=== PATIENT | female | born 1995 | race Caucasian/White ===

== ENCOUNTER 2019-09-11 03:47 | Emergency (ER) | payer BC ==
--- NOTE | 2019-09-11 04:39 | EDM.PDOC ---
ED HPI GENERAL MEDICAL PROBLEM - General Chief Complaint: Abdominal Pain Stated Complaint: ABDOMINAL PAIN Time Seen by Provider: 09/11/19 04:34 Source of Information: Reports: Patient History Limitations: Reports: No Limitations - History of Present Illness INITIAL COMMENTS - FREE TEXT/NARRATIVE: 24-year-old female with epigastric abdominal pain which has come and gone since Friday last week. She had the pain on Friday in her epigastrium that was sharp and stabbing and it lasted for a period of time and seemed to go away on its own. She had it again yesterday during the day and once again it seemed to go away on its own. It began at about 6:30 PM tonight and has been fairly constant since that time. The pain does not radiate. It is sharp and stabbing. She rates the pain as an 8/10. There has been nausea associated with it and vomiting 5. She has had pain similar to this in the past but it was short-lived and required no medical intervention. No fevers or chills. No urinary symptoms. The pain is worse with palpation. It seems to be somewhat worse when she tries to eat or drink. Nothing really seemed to bring the symptoms on. She did have a normal bowel movement at 1:30 PM yesterday. No dysuria or hematuria. There are no other associated signs or symptoms. There are no other modifying factors. 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 Medication(s) (Baclofen and gabapentin without relief) L abdomen Pain Score (Numeric/FACES): 8 - Related Data Allergies Allergy/AdvReac Type Severity Reaction Status Date / Time acetaminophen [From Tylenol] Allergy Hives Verified 09/11/19 03:56 ibuprofen Allergy Hives Verified 09/11/19 03:56 Penicillins Allergy Hives Verified 09/11/19 03:56 Home Meds: Home Meds Amitriptyline [Elavil] 25 mg PO BEDTIME 09/11/19 [History] Baclofen 20 mg PO TID PRN 09/11/19 [History] Ethinyl Estradiol/Drospirenone [Ni 28 Tablet] 1 each PO BEDTIME 09/11/19 [ History] Gabapentin [Neurontin] 100 mg PO TID PRN 09/11/19 [History] Melatonin 5 mg PO BEDTIME 09/11/19 [History] Omeprazole 40 mg PO ACBREAKFAST #30 cap.sr 09/11/19 [Rx] Ondansetron [Zofran ODT] 4 mg PO Q6H PRN #10 tab.dis 09/11/19 [Rx] Past Medical History 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: Asthma 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 Musculoskeletal History: Reports: Fibromyalgia, RA Neurological History: Reports: Migraines Psychiatric History: Reports: Anxiety, Depression, Suicide Attempt Endocrine/Metabolic History: Reports: Obesity/BMI 30+ Hematologic History: Reports: Anemia - Past Surgical History HEENT Surgical History: Reports: Adenoidectomy, Oral Surgery ([place] teeth extraction), Tonsillectomy Neurological Surgical History: Reports: None Musculoskeletal Surgical History: Reports: None Social & Family History - Tobacco Use Smoking Status *Q: Never Smoker - Caffeine Use Caffeine Use: Reports: Coffee, Soda, Tea - Alcohol Use Alcohol Use History: No - Recreational Drug Use Recreational Drug Use: No - Living Situation & Occupation Living situation: Reports: Single 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.) ED ROS GENERAL - Review of Systems Review Of Systems: See Below Constitutional: Reports: No Symptoms HEENT: Reports: No Symptoms Respiratory: Reports: No Symptoms Cardiovascular: Reports: No Symptoms Endocrine: Reports: No Symptoms GI/Abdominal: Reports: Abdominal Pain, Nausea, Vomiting : Reports: No Symptoms Musculoskeletal: Reports: No Symptoms Skin: Reports: No Symptoms Neurological: Reports: No Symptoms Hematologic/Lymphatic: Reports: No Symptoms Immunologic: Reports: No Symptoms ED EXAM, GI/ABD - Physical Exam Exam: See Below Exam Limited By: No Limitations General Appearance: Alert, WD/WN, Moderate Distress Eyes: Bilateral: Normal Appearance, EOMI Ears: Normal External Exam, Hearing Grossly Normal Nose: Normal Inspection, Normal Mucosa, No Blood Throat/Mouth: Normal Voice, No Airway Compromise, Other (Somewhat dry mucous membranes) Head: Atraumatic, Normocephalic Neck: Normal Inspection, Supple, Non-Tender, Full Range of Motion Respiratory/Chest: No Respiratory Distress, Lungs Clear, Normal Breath Sounds, No Accessory Muscle Use, Chest Non-Tender Cardiovascular: Normal Peripheral Pulses, Regular Rate, Rhythm, No JVD, No Murmur GI/Abdominal Exam: Normal Bowel Sounds, Soft, No Mass, Tender (In epigastrium.) , Other (Protuberant) Back Exam: Normal Inspection, Full Range of Motion Extremities: Normal Inspection, Normal Range of Motion, Non-Tender, No Pedal Edema, Normal Capillary Refill Neurological: Alert, Oriented, CN II-XII Intact, Normal Cognition, No Motor/ Sensory Deficits Skin Exam: Warm, Dry, Intact, Normal Color, No Rash Course - Vital Signs Last Recorded V/S: Last Vital Signs Temp 36.3 C 09/11/19 03:51 Pulse 80 09/11/19 03:51 Resp 18 09/11/19 03:51 BP 145/103 H 09/11/19 03:51 Pulse Ox 100 09/11/19 03:51 - Orders/Labs/Meds Labs: Laboratory Tests 09/11/19 09/11/19 09/11/19 Range/Units 04:08 04:08 04:20 WBC 11.0 (4.5-12.0) X10-3/uL RBC 4.76 (3.23-5.20) x10(6)uL Hgb 13.6 (11.5-15.5) g/dL Hct 40.4 (30.0-51.3) % MCV 84.9 (80-96) fL MCH 28.6 (27.7-33.6) pg MCHC 33.7 (32.2-35.4) g/dL RDW 11.9 (11.5-15.5) % Plt Count 283 (125-369) X10(3)uL MPV 9.3 (7.4-10.4) fL Neut % (Auto) 74.7 (46-82) % Lymph % (Auto) 17.6 (13-37) % [place] % (Auto) 5.2 (4-12) % Eos % (Auto) 2 (1.0-5.0) % Baso % (Auto) 0 (0-2) % Neut # (Auto) 8.3 (1.6-8.3) # Lymph # (Auto) 1.9 (0.6-5.0) # [place] # (Auto) 0.6 (0.0-1.3) # Eos # (Auto) 0.2 (0.0-0.8) # Baso # (Auto) 0.0 (0.0-0.2) # Sodium (135-145) mmol/L Potassium (3.5-5.3) mmol/L Chloride (100-110) mmol/L Carbon Dioxide (21-32) mmol/L BUN (7-18) mg/dL Creatinine (0.55-1.02) mg/dL Est Cr Clr Drug Dosing mL/min Estimated GFR (MDRD) (>60) BUN/Creatinine Ratio (9-20) Glucose (80-116) mg/dL Calcium (8.6-10.2) mg/dL Total Bilirubin (0.1-1.3) mg/dL AST (5-25) IU/L ALT (12-36) U/L Alkaline Phosphatase (56-112) IU/L C-Reactive Protein (0.5-0.9) mg/dL Total Protein (6.0-8.0) g/dL Albumin (3.5-5.2) g/dL Globulin g/dL Albumin/Globulin Ratio Lipase (73-393) U/L Urine Color Yellow (YELLOW) Urine Appearance Cloudy (CLEAR) Urine pH 5.0 (5.0-6.5) Ur Specific [place] 1.030 H (1.010-1.025) Urine Protein Trace (NEGATIVE) mg/dL Urine Glucose (UA) Normal (NORMAL) mg/dL Urine Ketones 15 H (NEGATIVE) mg/dL Urine Occult Blood Trace (NEGATIVE) Urine Nitrite Negative (NEGATIVE) Urine Bilirubin Small H (NEGATIVE) Urine Urobilinogen Normal (NEGATIVE) mg/dL Ur Leukocyte Esterase Small H (NEGATIVE) Urine RBC 0-5 (0-5) Urine WBC 0-5 (0-5) Ur Squamous Epith Cells Few H (NS,R,O) Amorphous Sediment Many Urine Bacteria Few H (NS) Urine HCG, Qual Negative (NEGATIVE) 09/11/19 09/11/19 Range/Units 04:20 04:20 WBC (4.5-12.0) X10-3/uL RBC (3.23-5.20) x10(6)uL Hgb (11.5-15.5) g/dL Hct (30.0-51.3) % MCV (80-96) fL MCH (27.7-33.6) pg MCHC (32.2-35.4) g/dL RDW (11.5-15.5) % Plt Count (125-369) X10(3)uL MPV (7.4-10.4) fL Neut % (Auto) (46-82) % Lymph % (Auto) (13-37) % [place] % (Auto) (4-12) % Eos % (Auto) (1.0-5.0) % Baso % (Auto) (0-2) % Neut # (Auto) (1.6-8.3) # Lymph # (Auto) (0.6-5.0) # [place] # (Auto) (0.0-1.3) # Eos # (Auto) (0.0-0.8) # Baso # (Auto) (0.0-0.2) # Sodium 140 (135-145) mmol/L Potassium 3.9 (3.5-5.3) mmol/L Chloride 104 (100-110) mmol/L Carbon Dioxide 25 (21-32) mmol/L BUN 13 (7-18) mg/dL Creatinine 0.8 (0.55-1.02) mg/dL Est Cr Clr Drug Dosing 84.28 mL/min Estimated GFR (MDRD) > 60 (>60) BUN/Creatinine Ratio 16.3 (9-20) Glucose 137 H (80-116) mg/dL Calcium 9.3 (8.6-10.2) mg/dL Total Bilirubin 0.2 (0.1-1.3) mg/dL AST 17 (5-25) IU/L ALT 38 H (12-36) U/L Alkaline Phosphatase 90 (56-112) IU/L C-Reactive Protein 1.2 H (0.5-0.9) mg/dL Total Protein 8.0 (6.0-8.0) g/dL Albumin 3.6 (3.5-5.2) g/dL Globulin 4.4 g/dL Albumin/Globulin Ratio 0.8 Lipase 84 (73-393) U/L Urine Color (YELLOW) Urine Appearance (CLEAR) Urine pH (5.0-6.5) Ur Specific [place] (1.010-1.025) Urine Protein (NEGATIVE) mg/dL Urine Glucose (UA) (NORMAL) mg/dL Urine Ketones (NEGATIVE) mg/dL Urine Occult Blood (NEGATIVE) Urine Nitrite (NEGATIVE) Urine Bilirubin (NEGATIVE) Urine Urobilinogen (NEGATIVE) mg/dL Ur Leukocyte Esterase (NEGATIVE) Urine RBC (0-5) Urine WBC (0-5) Ur Squamous Epith Cells (NS,R,O) Amorphous Sediment Urine Bacteria (NS) Urine HCG, Qual (NEGATIVE) Meds: Medications Discontinued Medications Generic Name Dose Route Start Last Admin Trade Name Freq PRN Reason Stop Dose Admin Sodium Chloride 1,000 mls @ 999 mls/hr 09/11/19 04:49 09/11/19 05:19 Normal Saline IV 09/11/19 05:49 999 mls/hr .BOLUS ONE Administration Metoclopramide HCl 10 mg 09/11/19 04:49 09/11/19 05:20 Reglan IVPUSH 09/11/19 04:50 10 mg ONETIME ONE Administration Pantoprazole Sodium 40 mg 09/11/19 05:53 Protonix Iv IVPUSH 09/11/19 05:54 ONETIME ONE - Re-Assessments/Exams Free Text/Narrative Re-Assessment/Exam: 09/11/19 05:50: Patient is sleeping. When awakened she reports she feels improved with the pain down to a 4/10. It does seem to be going away. No more nausea. No vomiting while here. Her blood tests and urine tests are all reassuringly normal. I am unsure of the cause her pain but suspect gastric or esophageal related. It also being a gallbladder problem. I will place the patient on Prilosec as a trial and have recommended that she follow up with her primary doctor she may need further testing as an outpatient. I will discharge the patient with a prescription for Zofran 4 mg ODT as well. I discussed this with the patient and she is comfortable with plans for discharge. Departure - Departure Time of Disposition: 06:00 Disposition: Home, Self-Care 01 Condition: Good (Improved) Clinical Impression: Dehydration Abdominal pain Qualifiers: Abdominal location: epigastric Qualified Code(s): R10.13 - Epigastric pain Vomiting Qualifiers: Vomiting type: unspecified Vomiting Intractability: non-intractable Nausea presence: with nausea Qualified Code(s): R11.2 - Nausea with vomiting, unspecified - Discharge Information Prescriptions: Omeprazole 40 mg PO ACBREAKFAST #30 cap.sr Ondansetron [Zofran ODT] 4 mg PO Q6H PRN #10 tab.dis PRN Reason: Nausea/Vomiting Instructions: Dehydration, Adult, [id number], Nausea and Vomiting, Adult, [id number], Abdominal Pain, Adult, [id number] Referrals: Nicolasa Alonzo NP [Nurse Practitioner] - Forms: ED Department Discharge Additional Instructions: Your blood tests and urine tests were reassuringly normal. As we discussed, I am unsure why you are having the episodes of epigastric abdominal pain. It could well be either a stomach or esophagus-related inflammation. It could also be a problem with your gallbladder. I am placing you on a trial of acid railroad police officer called Prilosec to treat for the possibility of stomach or esophagus-related problem. I have also given you a prescription of Zofran for nausea. I have referred you to Nicolasa Alonzo NP for follow-up of this as she may need further outpatient testing. If you have a primary doctor, you may follow-up with them as well. Back to the emergency department for unrelenting vomiting, high fever, worsening abdominal pain or any other concerning sign or symptom.
[2019-09-11] MEDS ORDERED: Sodium Chloride 0.9% 1,000 ML IV ONE (04:49)
[2019-09-11] MEDS ORDERED: Metoclopramide 10 MG/2 ML SDV IVPUSH ONE (04:49)
[2019-09-11] MEDS ORDERED: Pantoprazole 40 MG Vial IVPUSH ONE (05:53)
== END 2019-09-11 06:25 | disposition home or self-care (01) ==
LOC: FB.ED 03:47
DX: E86.0 Dehydration (principal); R10.13 Epigastric pain; R11.2 Nausea with vomiting, unspecified; J45.909 Unspecified asthma, uncomplicated; E66.9 Obesity, unspecified; F32.9 Major depressive disorder, single episode, unspecified; F41.9 Anxiety disorder, unspecified; Z88.6 Allergy status to analgesic agent; Z88.0 Allergy status to penicillin; Z88.8 Allergy status to other drugs, medicaments and biological substances; Z68.41 Body mass index [BMI] 40.0-44.9, adult
CPT/HCPCS: 36415; 80053; 81001; 81025; 83690; 85025; 86140; 96374; 96375; 99284; C9113; J2765; J7030

== ENCOUNTER 2020-11-09 03:47 | Emergency (ER) | payer BC ==
[2020-11-09] MEDS ORDERED: Prochlorperazine 5 MG Tab PO ONE (03:48)
[2020-11-09] MEDS: Sodium Chloride 0.9% 1,000 ML IV ONE (04:23)
[2020-11-09] MEDS: Ondansetron 4 MG/2 ML SDV IVPUSH ONE (04:23)
--- NOTE | 2020-11-09 05:31 | EDM.PDOC ---
ED HPI GENERAL MEDICAL PROBLEM - General Chief Complaint: General Stated Complaint: COVID Time Seen by Provider: 11/09/20 05:30 Source of Information: Reports: Patient History Limitations: Reports: No Limitations - History of Present Illness INITIAL COMMENTS - FREE TEXT/NARRATIVE: Margarita complains Nausea ,vomiting and dizziness.Also has body aches. Her symptoms have been on going since Friday.She has been diagnosed with COVID- 19.Denies any fever or chills,and no SOB Generalized Pain Score (Numeric/FACES): 9 - Related Data Allergies Allergy/AdvReac Type Severity Reaction Status Date / Time acetaminophen [From Tylenol] Allergy Hives Verified 09/11/19 03:56 ibuprofen Allergy Hives Verified 09/11/19 03:56 Penicillins Allergy Hives Verified 09/11/19 03:56 Home Meds: Home Meds Amitriptyline [Elavil] 25 mg PO BEDTIME 09/11/19 [History] Baclofen 20 mg PO TID PRN 09/11/19 [History] Ethinyl Estradiol/Drospirenone [Ni 28 Tablet] 1 each PO BEDTIME 09/11/19 [History] Gabapentin [Neurontin] 100 mg PO TID PRN 09/11/19 [History] Melatonin 5 mg PO BEDTIME 09/11/19 [History] Omeprazole 40 mg PO ACBREAKFAST #30 cap.sr 09/11/19 [Rx] Ondansetron [Zofran ODT] 4 mg PO Q6H PRN #10 tab.dis 09/11/19 [Rx] Hydroxychloroquine [Plaquenil] 200 mg PO DAILY 11/09/20 [History] Past Medical History 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: Asthma 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 Musculoskeletal History: Reports: Fibromyalgia, RA Neurological History: Reports: Migraines Psychiatric History: Reports: Anxiety, Depression, Suicide Attempt Endocrine/Metabolic History: Reports: Obesity/BMI 30+ Hematologic History: Reports: Anemia - Past Surgical History HEENT Surgical History: Reports: Adenoidectomy, Oral Surgery, Tonsillectomy Neurological Surgical History: Reports: None Musculoskeletal Surgical History: Reports: None Social & Family History - Family History Family Medical History: No Pertinent Family History - Tobacco Use Tobacco Use Status *Q: Never Tobacco User - Caffeine Use Caffeine Use: Reports: Soda - Recreational Drug Use Recreational Drug Use: No - Living Situation & Occupation Living situation: Reports: Single 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 ED EXAM, GENERAL - Physical Exam Exam: See Below Exam Limited By: No Limitations General Appearance: Alert, WD/WN, No Apparent Distress Ears: Normal External Exam Nose: Normal Inspection Respiratory/Chest: No Respiratory Distress Neurological: Alert, Oriented Psychiatric: Normal Affect Course - Vital Signs Last Recorded V/S: Last Vital Signs Temp 98.3 F 11/09/20 03:57 Pulse 119 H 11/09/20 03:57 Resp 18 11/09/20 03:57 BP 103/65 11/09/20 03:57 Pulse Ox 99 11/09/20 03:57 - Orders/Labs/Meds Labs: Laboratory Tests 11/09/20 11/09/20 Range/Units 04:15 04:15 WBC 7.9 (3.0-10.3) x10-3/uL RBC 4.75 (3.60-5.20) x10(6)uL Hgb 13.1 (11.4-15.5) g/dL Hct 40.0 (34.2-48.2) % MCV 84.3 (76.7-100.5) fL MCH 27.5 (23.9-33.9) pg MCHC 32.6 (31.9-34.8) g/dL RDW 12.8 (12.3-16.5) % Plt Count 205 (151-488) x10(3)uL MPV 9.8 (7.1-12.4) fL Neutrophils % (Manual) 69 (46-82) % Band Neutrophils % 2 (0-6) % Lymphocytes % (Manual) 23 (13-37) % Monocytes % (Manual) 6 (4-12) % Sodium 139 (135-145) mmol/L Potassium 4.1 (3.5-5.3) mmol/L Chloride 102 (100-110) mmol/L Carbon Dioxide 25 (21-32) mmol/L BUN 11 (7-18) mg/dL Creatinine 1.1 H (0.55-1.02) mg/dL Est Cr Clr Drug Dosing TNP Estimated GFR (MDRD) 60 (>60) BUN/Creatinine Ratio 10.0 (9-20) Glucose 166 H (80-116) mg/dL Calcium 8.9 (8.6-10.2) mg/dL Total Bilirubin 0.2 (0.1-1.3) mg/dL AST 27 H D (5-25) IU/L ALT 39 H (12-36) U/L Alkaline Phosphatase 69 (56-112) IU/L Total Protein 7.2 (6.0-8.0) g/dL Albumin 3.4 L (3.5-5.2) g/dL Globulin 3.8 g/dL Albumin/Globulin Ratio 0.9 Meds: Medications Discontinued Medications Generic Name Dose Route Start Last Admin Trade Name Freq PRN Reason Stop Dose Admin Sodium Chloride 1,000 mls @ 999 mls/hr 11/09/20 04:06 11/09/20 04:23 Normal Saline IV 11/09/20 05:06 999 mls/hr .BOLUS ONE Administration Ondansetron HCl 4 mg 11/09/20 04:06 11/09/20 04:23 Zofran IVPUSH 11/09/20 04:07 4 mg ONETIME ONE Administration Departure - Departure Time of Disposition: 05:31 Disposition: Home, Self-Care 01 Condition: Good Clinical Impression: Vomiting Qualifiers: Vomiting type: unspecified Vomiting Intractability: non-intractable Nausea presence: with nausea Qualified Code(s): R11.2 - Nausea with vomiting, unspecified - Discharge Information Instructions: COVID-19 Referrals: PCP,None [Primary Care Provider] - Forms: ED Department Discharge Additional Instructions: make sure to drink plenty of fluids every day. at least 3 liters per day. make take compazine 5mg 1 tab three times a day as needed for nausea. Sepsis Event Note (ED) - Evaluation Sepsis Screening Result: No Definite Risk - Focused Exam Vital Signs: Vital Signs Temp Pulse Resp BP Pulse Ox 11/09/20 03:57 98.3 F 119 H 18 103/65 99 - Problem List & Annotations (1) COVID-19 SNOMED Code(s): 911189794 Code(s): U07.1 - COVID-19 Status: Acute Current Visit: Yes (2) Vomiting SNOMED Code(s): 374478015 Code(s): R11.10 - VOMITING, UNSPECIFIED Status: Acute Current Visit: Yes Qualifiers: Vomiting type: unspecified Vomiting Intractability: non-intractable Nausea presence: with nausea Qualified Code(s): R11.2 - Nausea with vomiting, unspecified - Problem List Review Problem List Initiated/Reviewed/Updated: Yes - Assessment/Plan Plan: I gave Margarita 1 L of crystalloid,and IV Zofran. She felt better and DC's on Compazine to use prn for dizziness
== END 2020-11-09 06:30 | disposition home or self-care (01) ==
LOC: FB.ED 03:47
DX: R11.2 Nausea with vomiting, unspecified (principal); J45.909 Unspecified asthma, uncomplicated; F32.9 Major depressive disorder, single episode, unspecified; E66.9 Obesity, unspecified; Z88.6 Allergy status to analgesic agent; Z88.0 Allergy status to penicillin; Z79.899 Other long term (current) drug therapy
CPT/HCPCS: 36415; 80053; 85025; 96374; 99284; A9270; J2405; J7030; Q0164

== ENCOUNTER 2021-04-23 04:42 | Emergency (ER) | payer BC ==
[2021-04-23] MEDS ORDERED: Sodium Chloride 0.9% 10 ML Syringe FLUSH PRN (05:14)
[2021-04-23] MEDS ORDERED: Sodium Chloride 0.9% 1,000 ML IV ONE (05:15)
[2021-04-23] MEDS ORDERED: Prochlorperazine 10 MG/2 ML SDV IVPUSH ONE (05:16)
[2021-04-23] MEDS ORDERED: Pantoprazole 40 MG Vial IVPUSH ONE (05:17)
--- NOTE | 2021-04-23 05:27 | EDM.PDOC ---
ED HPI GENERAL MEDICAL PROBLEM - General Chief Complaint: Abdominal Pain Stated Complaint: STOMACH PAIN Time Seen by Provider: 04/23/21 05:23 Source of Information: Reports: Patient History Limitations: Reports: No Limitations - History of Present Illness INITIAL COMMENTS - FREE TEXT/NARRATIVE: Presents with non-radiating LUQ abdominal pain and N/V since @2300 last night. Denies EtOH consumption. Had similar symptoms on the right in the past ?etiology. PMHx includes Asthma, Migraine, Lupus, and RA. No prior h/o kidney stones or PUD. Patient had been on Omeprazole several years ago for "increased stomach acid." Onset Date: 04/22/21 Onset Time: 23:00 Location: Reports: Abdomen Quality: Reports: Ache Severity: Moderate L upper abdomen Pain Score (Numeric/FACES): 7 - Related Data Allergies Allergy/AdvReac Type Severity Reaction Status Date / Time acetaminophen [From Tylenol] Allergy Hives Verified 04/23/21 04:50 ibuprofen Allergy Hives Verified 04/23/21 04:50 Penicillins Allergy Hives Verified 04/23/21 04:50 Home Meds: Home Meds Amitriptyline [Elavil] 100 mg PO BEDTIME 09/11/19 [History] Baclofen 20 mg PO DAILY 09/11/19 [History] Ethinyl Estradiol/Drospirenone [Ni 28 Tablet] 1 each PO BEDTIME 09/11/19 [History] Gabapentin [Neurontin] 100 mg PO BID PRN 09/11/19 [History] Hydroxychloroquine [Plaquenil] 200 mg PO DAILY 11/09/20 [History] Albuterol Sulfate [Albuterol Sulfate Hfa] 2 puff IH Q4H PRN 04/23/21 [History] Pantoprazole Sodium [Protonix] 40 mg PO DAILY #14 tablet. 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 Musculoskeletal History: Reports: Fibromyalgia, RA, Other (See Below) Other Musculoskeletal History: hx lupus Neurological History: Reports: Migraines Psychiatric History: Reports: Anxiety, Depression, Suicide Attempt Endocrine/Metabolic History: Reports: Obesity/BMI 30+ Hematologic History: Reports: Anemia - Infectious Disease History Infectious Disease History: Reports: Novel Coronavirus - Past Surgical History HEENT Surgical History: Reports: Adenoidectomy, Myringotomy w Tube(s), Oral Surgery, Tonsillectomy Other HEENT Surgeries/Procedures: bilat tubes Neurological Surgical History: Reports: None Musculoskeletal Surgical History: Reports: None Social & Family History - Family History Family Medical History: No Pertinent Family History - Tobacco Use Tobacco Use Status *Q: Never Tobacco User - Caffeine Use Caffeine Use: Reports: Coffee, Soda - Alcohol Use Alcohol Use History: No - Recreational Drug Use Recreational Drug Use: No - Living Situation & Occupation Living situation: Reports: Single 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 ED EXAM, GI/ABD - Physical Exam Exam: See Below Exam Limited By: No Limitations General Appearance: Alert, WD/WN, No Apparent Distress Throat/Mouth: No Airway Compromise Head: Atraumatic, Normocephalic Neck: Full Range of Motion Respiratory/Chest: No Respiratory Distress, Lungs Clear, Normal Breath Sounds Cardiovascular: Regular Rate, Rhythm, No Murmur GI/Abdominal Exam: Normal Bowel Sounds, Soft, No Distention, Tender (LUQ) Back Exam: No: CVA Tenderness (L) Extremities: Normal Range of Motion Neurological: Alert, Normal Cognition Psychiatric: Normal Affect, Normal Mood Course - Vital Signs Last Recorded V/S: Last Vital Signs Temp 36.2 C 04/23/21 04:44 Pulse 90 04/23/21 04:44 Resp 20 04/23/21 04:44 BP 139/105 H 04/23/21 04:44 Pulse Ox 98 04/23/21 04:44 - Orders/Labs/Meds Orders: Active Orders 24 hr Category Date Time Status Abdomen Pelvis w Cont [CT] Stat Exams 04/23/21 06:07 Taken CULTURE URINE [RM] Stat Lab 04/23/21 06:12 Received Sodium Chloride 0.9% [Saline Flush] Med 04/23/21 05:14 Active 10 ml FLUSH ASDIRECTED PRN Saline Lock Insert [OM.PC] Routine Oth 04/23/21 05:14 Ordered Medication Orders Sodium Chloride (Sodium Chloride 0.9% 10 Ml Syringe) 10 ml FLUSH ASDIRECTED PRN PRN Reason: Keep Vein Open Last Admin: 04/23/21 05:40 Dose: 10 ml Documented by: MAGO Labs: Laboratory Tests 04/23/21 04/23/21 04/23/21 Range/Units 05:20 05:20 05:20 WBC 10.4 H (3.0-10.3) x10-3/uL RBC 4.39 (3.60-5.20) x10(6)uL Hgb 13.1 (11.4-15.5) g/dL Hct 37.8 (34.2-48.2) % MCV 86.2 (76.7-100.5) fL MCH 29.9 (23.9-33.9) pg MCHC 34.7 (31.9-34.8) g/dL RDW 12.9 (12.3-16.5) % Plt Count 211 (151-488) x10(3)uL MPV 9.9 (7.1-12.4) fL Neut % (Auto) 63.7 (30.8-76.2) % Lymph % (Auto) 23.9 (18.4-52.1) % [place] % (Auto) 6.7 (4.4-15.7) % Eos % (Auto) 5.1 (0.6-8.1) % Baso % (Auto) 0.6 (0.2-1.5) % Neut # (Auto) 6.6 H (1.5-6.3) x10-3/uL Lymph # (Auto) 2.5 (1.0-4.4) x10-3/uL [place] # (Auto) 0.7 (0.3-1.0) x10-3/uL Eos # (Auto) 0.5 (0.0-0.8) x10-3/uL Baso # (Auto) 0.1 (0.0-0.1) x10-3/uL Sodium 140 (135-145) mmol/L Potassium 4.0 (3.5-5.3) mmol/L Chloride 106 (100-110) mmol/L Carbon Dioxide 25 (21-32) mmol/L BUN 18 (7-18) mg/dL Creatinine 1.0 (0.55-1.02) mg/dL Est Cr Clr Drug Dosing 66.83 mL/min Estimated GFR (MDRD) > 60 (>60) BUN/Creatinine Ratio 18.0 (9-20) Glucose 134 H (80-116) mg/dL Calcium 8.0 L (8.6-10.2) mg/dL Total Bilirubin 0.2 (0.1-1.3) mg/dL AST 12 D (5-25) IU/L ALT 22 D (12-36) U/L Alkaline Phosphatase 79 (56-112) IU/L Total Protein 7.1 (6.0-8.0) g/dL Albumin 3.3 L (3.5-5.2) g/dL Globulin 3.8 g/dL Albumin/Globulin Ratio 0.9 Lipase 77 (73-393) U/L Urine Color (YELLOW) Urine Appearance (CLEAR) Urine pH (5.0-6.5) Ur Specific [place] (1.010-1.025) Urine Protein (NEGATIVE) mg/dL Urine Glucose (UA) (NORMAL) mg/dL Urine Ketones (NEGATIVE) mg/dL Urine Occult Blood (NEGATIVE) Urine Nitrite (NEGATIVE) Urine Bilirubin (NEGATIVE) Urine Urobilinogen (NEGATIVE) mg/dL Ur Leukocyte Esterase (NEGATIVE) Urine WBC (0-5) Ur Squamous Epith Cells (NS,R,O) Urine Bacteria (NS) Urine HCG, Qual (NEGATIVE) 04/23/21 04/23/21 Range/Units 06:12 06:12 WBC (3.0-10.3) x10-3/uL RBC (3.60-5.20) x10(6)uL Hgb (11.4-15.5) g/dL Hct (34.2-48.2) % MCV (76.7-100.5) fL MCH (23.9-33.9) pg MCHC (31.9-34.8) g/dL RDW (12.3-16.5) % Plt Count (151-488) x10(3)uL MPV (7.1-12.4) fL Neut % (Auto) (30.8-76.2) % Lymph % (Auto) (18.4-52.1) % [place] % (Auto) (4.4-15.7) % Eos % (Auto) (0.6-8.1) % Baso % (Auto) (0.2-1.5) % Neut # (Auto) (1.5-6.3) x10-3/uL Lymph # (Auto) (1.0-4.4) x10-3/uL [place] # (Auto) (0.3-1.0) x10-3/uL Eos # (Auto) (0.0-0.8) x10-3/uL Baso # (Auto) (0.0-0.1) x10-3/uL Sodium (135-145) mmol/L Potassium (3.5-5.3) mmol/L Chloride (100-110) mmol/L Carbon Dioxide (21-32) mmol/L BUN (7-18) mg/dL Creatinine (0.55-1.02) mg/dL Est Cr Clr Drug Dosing mL/min Estimated GFR (MDRD) (>60) BUN/Creatinine Ratio (9-20) Glucose (80-116) mg/dL Calcium (8.6-10.2) mg/dL Total Bilirubin (0.1-1.3) mg/dL AST (5-25) IU/L ALT (12-36) U/L Alkaline Phosphatase (56-112) IU/L Total Protein (6.0-8.0) g/dL Albumin (3.5-5.2) g/dL Globulin g/dL Albumin/Globulin Ratio Lipase (73-393) U/L Urine Color Yellow (YELLOW) Urine Appearance Clear (CLEAR) Urine pH 6.0 (5.0-6.5) Ur Specific [place] 1.030 H (1.010-1.025) Urine Protein Negative (NEGATIVE) mg/dL Urine Glucose (UA) Normal (NORMAL) mg/dL Urine Ketones Negative (NEGATIVE) mg/dL Urine Occult Blood Negative (NEGATIVE) Urine Nitrite Negative (NEGATIVE) Urine Bilirubin Negative (NEGATIVE) Urine Urobilinogen Normal (NEGATIVE) mg/dL Ur Leukocyte Esterase Moderate H (NEGATIVE) Urine WBC 0-5 (0-5) Ur Squamous Epith Cells Few H (NS,R,O) Urine Bacteria Few H (NS) Urine HCG, Qual Negative (NEGATIVE) Meds: Medications Generic Name Dose Route Start Last Admin Trade Name Freq PRN Reason Stop Dose Admin Sodium Chloride 10 ml 04/23/21 05:14 04/23/21 05:40 Sodium Chloride 0.9% 10 Ml Syringe FLUSH 10 ml ASDIRECTED PRN Administration Keep Vein Open Discontinued Medications Generic Name Dose Route Start Last Admin Trade Name Nasir PRN Reason Stop Dose Admin Hydrocodone Bitart/Acetaminophen 1 tab 04/23/21 05:39 Acetaminophen/Hydrocodone 325-5 Mg Tab PO 04/23/21 05:40 ONETIME ONE Hydromorphone HCl 1 mg 04/23/21 06:07 04/23/21 06:41 Hydromorphone 2 Mg/Ml Sdv IVPUSH 04/23/21 06:08 Not Given ONETIME ONE Sodium Chloride 1,000 mls @ 999 mls/hr 04/23/21 05:15 04/23/21 05:40 Normal Saline IV 04/23/21 06:15 999 mls/hr .BOLUS ONE Administration Iopamidol 100 ml 04/23/21 06:13 04/23/21 06:41 Iopamidol 755 Mg/Ml 100 Ml Bottle IV 04/23/21 06:14 100 ml . DIRECTED ONE Administration Pantoprazole Sodium 40 mg 04/23/21 05:17 04/23/21 05:44 Pantoprazole 40 Mg Vial IVPUSH 04/23/21 05:18 40 mg ONETIME ONE Administration Prochlorperazine Edisylate 10 mg 04/23/21 05:16 04/23/21 05:41 Prochlorperazine 10 Mg/2 Ml Sdv IVPUSH 04/23/21 05:17 10 mg ONETIME ONE Administration - Radiology Interpretation Free Text/Narrative:: CT Abd/Pelvis w/IV contrast: IMPRESSION: Negative CT of the abdomen and pelvis. Dictated by Tam Freire MD @ 04/23/2021 7:08:02 AM - Re-Assessments/Exams Free Text/Narrative Re-Assessment/Exam: 04/23/21 07:26 Symptoms improved after Protonix 40mg IV and Compazine 10mg IV. Departure - Departure Time of Disposition: 07:27 Disposition: Home, Self-Care 01 Condition: Good Clinical Impression: Dyspepsia Abdominal pain Qualifiers: Abdominal location: epigastric Qualified Code(s): R10.13 - Epigastric pain - Discharge Information *PRESCRIPTION DRUG MONITORING PROGRAM REVIEWED*: No *COPY OF PRESCRIPTION DRUG MONITORING REPORT IN PATIENT DENISE: Not Applicable Prescriptions: Pantoprazole Sodium [Protonix] 40 mg PO DAILY #14 tablet. Instructions: Gastritis, Adult, [id number] Referrals: Janet Philippe BUILD TECHNICIAN [Primary Care Provider] - 3 Days Forms: ED Department Discharge Additional Instructions: Fill the prescription for Protonix at [facility] in [place] and take as directed. Avoid NSAIDs (eg. Ibuprofen, Aleve) and spicy/fatty foods. Follow up with your Primary Physician in 3 days. Return to the ER if symptoms worsen. Sepsis Event Note (ED) - Evaluation Sepsis Screening Result: No Definite Risk - Focused Exam Vital Signs: Vital Signs Temp Pulse Resp BP Pulse Ox 04/23/21 04:44 36.2 C 90 20 139/105 H 98 - My Orders Last 24 Hours: My Active Orders 04/23/21 05:14 Sodium Chloride 0.9% [Saline Flush] 10 ml FLUSH ASDIRECTED PRN Saline Lock Insert [OM.PC] Routine 04/23/21 06:07 Abdomen Pelvis w Cont [CT] Stat 04/23/21 06:12 CULTURE URINE [RM] Stat - Assessment/Plan Last 24 Hours: My Active Orders 04/23/21 05:14 Sodium Chloride 0.9% [Saline Flush] 10 ml FLUSH ASDIRECTED PRN Saline Lock Insert [OM.PC] Routine 04/23/21 06:07 Abdomen Pelvis w Cont [CT] Stat 04/23/21 06:12 CULTURE URINE [RM] Stat
[2021-04-23] MEDS ORDERED: Acetaminophen/HYDROcodone 325-5 MG Tab PO ONE (05:39)
[2021-04-23] MEDS ORDERED: HYDROmorphone 2 MG/ML SDV IVPUSH ONE (06:07)
[2021-04-23] MEDS ORDERED: Iopamidol 755 Mg/ML 100 ML Bottle IV ONE (06:13)
== END 2021-04-23 07:37 | disposition home or self-care (01) ==
LOC: FB.ED 04:42
DX: R10.13 Epigastric pain (principal); E66.9 Obesity, unspecified; Z68.30 Body mass index [BMI] 30.0-30.9, adult; Z86.16 Personal history of COVID-19; Z88.0 Allergy status to penicillin; Z88.8 Allergy status to other drugs, medicaments and biological substances
CPT/HCPCS: 36415; 74177; 80053; 81001; 81025; 83690; 85025; 87086; 96374; 96375; 99284-25; C9113; J0780; J7030; Q9967

== ENCOUNTER 2021-08-17 17:27 | Inpatient (IN) | payer BC ==
[2021-08-17] MEDS ORDERED: methylPREDNISolone Sodium Succinate 125 MG/2 ML SDV IM ONE (18:17)
--- NOTE | 2021-08-17 18:18 | EDM.PDOC ---
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, 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, co-worker with COVID sxs and encouraged to get tested but did not had COVID last Oct, has had COVID vax x 2 no pain HR 117 now, c/w prior neb, no actual wheeze now, will defer on neb d/t tachycardia Bilateral Chest Pain Score (Numeric/FACES): 8 - Related Data Allergies Allergy/AdvReac Type Severity Reaction Status Date / Time acetaminophen [From Tylenol] Allergy Hives Verified 04/23/21 04:50 ibuprofen Allergy Hives Verified 04/23/21 04:50 Penicillins Allergy Hives Verified 04/23/21 04:50 Home Meds: Home Meds Amitriptyline [Elavil] 100 mg PO BEDTIME 09/11/19 [History] Baclofen 20 mg PO DAILY 09/11/19 [History] Ethinyl Estradiol/Drospirenone [Ni 28 Tablet] 1 each PO BEDTIME 09/11/19 [History] Gabapentin [Neurontin] 100 mg PO BID PRN 09/11/19 [History] Hydroxychloroquine [Plaquenil] 200 mg PO DAILY 11/09/20 [History] Albuterol Sulfate [Albuterol Sulfate Hfa] 2 puff IH Q4H PRN 04/23/21 [History] Pantoprazole Sodium [Protonix] 40 mg PO DAILY #14 tablet. 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 Musculoskeletal History: Reports: Fibromyalgia, RA, Other (See Below) Other Musculoskeletal History: hx lupus Neurological History: Reports: Migraines Psychiatric History: Reports: Anxiety, Depression, Suicide Attempt Endocrine/Metabolic History: Reports: Obesity/BMI 30+ Hematologic History: Reports: Anemia - Infectious Disease History Infectious Disease History: Reports: Novel Coronavirus - Past Surgical History HEENT Surgical History: Reports: Adenoidectomy, Myringotomy w Tube(s), Oral Surgery, Tonsillectomy Other HEENT Surgeries/Procedures: bilat tubes Neurological Surgical History: Reports: None Musculoskeletal Surgical History: Reports: None Social & Family History - Family History Family Medical History: No Pertinent Family History - Caffeine Use Caffeine Use: Reports: Coffee, Soda - Living Situation & Occupation Living situation: Reports: Single 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.) ED ROS GENERAL - Review of Systems Review Of Systems: See Below Constitutional: Reports: Fever HEENT: Reports: Rhinitis Respiratory: Reports: Shortness of Breath, Wheezing, Cough Cardiovascular: Reports: No Symptoms Endocrine: Reports: No Symptoms GI/Abdominal: Reports: No Symptoms : Reports: No Symptoms Musculoskeletal: Reports: No Symptoms Skin: Reports: No Symptoms Neurological: Reports: No Symptoms Psychiatric: Reports: No Symptoms Hematologic/Lymphatic: Reports: No Symptoms Immunologic: Reports: No Symptoms ED EXAM, GENERAL - Physical Exam Exam: See Below Exam Limited By: No Limitations General Appearance: Alert, WD/WN, Other (alert, mild sob, mild inc'd RR, no retractions/grunt/purse lips, no wheeze) Ears: Hearing Grossly Normal, Normal TMs Ear Exam: Bilateral Ear: Auricle Normal, Canal Normal, TM normal Nose: Other (mild swell) Throat/Mouth: Normal Inspection, Normal Lips, Normal Teeth, Normal Voice, No Airway Compromise Head: Atraumatic, Normocephalic Neck: Normal Inspection, Supple, Non-Tender, Full Range of Motion. No: Lymphadenopathy (R), Lymphadenopathy (L) Respiratory/Chest: No Respiratory Distress, Lungs Clear, Other (good AE, no inc'd exp phase, no wheeze). No: Crackles, Rales, Rhonchi, Wheezing, Retractions, Splinting, Prolonged Expiration Cardiovascular: Regular Rate, Rhythm, No Edema, No Murmur GI/Abdominal: Soft, Non-Tender, No Distention Back Exam: Normal Inspection, Decreased Range of Motion Extremities: Normal Inspection, Non-Tender, No Pedal Edema Neurological: Alert, Oriented, CN II-XII Intact, Normal Cognition, No Motor/Sensory Deficits Psychiatric: Normal Affect, Normal Mood Skin Exam: Warm, Dry, Intact, Normal Color, No Rash Lymphatic: No Adenopathy Course - Vital Signs Last Recorded V/S: Last Vital Signs Temp 38.1 C 08/17/21 17:27 Pulse 114 H 08/17/21 17:27 Resp 32 H 08/17/21 17:27 BP 151/106 H 08/17/21 17:27 Pulse Ox 93 L 08/17/21 17:27 - Orders/Labs/Meds Orders: Active Orders 24 hr Category Date Time Status RT Aerosol Therapy [RC] ASDIRECTED Care 08/17/21 21:16 Active RT Aerosol Therapy [RC] ASDIRECTED Care 08/17/21 22:12 Ordered Chest 2V [CR] Stat Exams 08/17/21 19:47 Taken Isolation [COMM] Routine Oth 08/17/21 18:12 Ordered Labs: Laboratory Tests 08/17/21 08/17/21 Range/Units 18:20 18:36 WBC 11.8 H (3.0-10.3) x10-3/uL RBC 4.73 (3.60-5.20) x10(6)uL Hgb 13.3 (11.4-15.5) g/dL Hct 39.7 (34.2-48.2) % MCV 84.1 (76.7-100.5) fL MCH 28.2 (23.9-33.9) pg MCHC 33.6 (31.9-34.8) g/dL RDW 12.7 (12.3-16.5) % Plt Count 244 (151-488) x10(3)uL MPV 8.8 (7.1-12.4) fL Neut % (Auto) 81.0 H (30.8-76.2) % Lymph % (Auto) 9.3 L (18.4-52.1) % [place] % (Auto) 6.2 (4.4-15.7) % Eos % (Auto) 2.9 (0.6-8.1) % Baso % (Auto) 0.6 (0.2-1.5) % Neut # (Auto) 9.6 H (1.5-6.3) x10-3/uL Lymph # (Auto) 1.1 (1.0-4.4) x10-3/uL [place] # (Auto) 0.7 (0.3-1.0) x10-3/uL Eos # (Auto) 0.3 (0.0-0.8) x10-3/uL Baso # (Auto) 0.1 (0.0-0.1) x10-3/uL SARS-CoV-2 RNA (DENISE) Negative (NEGATIVE) Meds: Medications Discontinued Medications Generic Name Dose Route Start Last Admin Trade Name Freq PRN Reason Stop Dose Admin Albuterol 2.5 mg 08/17/21 21:15 08/17/21 21:20 Albuterol 0.083% 2.5 Mg/3 Ml Neb Soln NEB 08/17/21 21:16 2.5 mg ONETIME ONE Administration Albuterol 2.5 mg 08/17/21 22:11 08/17/21 22:17 Albuterol 0.083% 2.5 Mg/3 Ml Neb Soln NEB 08/17/21 22:12 2.5 mg ONETIME ONE Administration Benzonatate 200 mg 08/17/21 19:48 08/17/21 20:32 Benzonatate 100 Mg Cap PO 08/17/21 19:49 200 mg ONETIME ONE Administration Hydroxyzine HCl 50 mg 08/17/21 19:57 08/17/21 20:32 Hydroxyzine Hcl 50 Mg/Ml Sdv IM 08/17/21 19:58 50 mg ONETIME ONE Administration Methylprednisolone Sodium Succinate 125 mg 08/17/21 18:17 08/17/21 18:55 Methylprednisolone Sodium Succinate 125 Mg/2 Ml Sdv IM 08/17/21 18:18 125 mg ONETIME ONE Administration - Re-Assessments/Exams Free Text/Narrative Re-Assessment/Exam: 08/17/21 22:53 pt appeared to be moving air well without wheeze or inc'd exp phase altho remained dyspneic, was given alb neb with dec'd work of breathing, PO still 92%, given a 2nd alb neb and PO inc'd 94% chest XR neg on prelim ED read did have a possible low grade temp, will keep off work for 3d pt understands she can and should return to ED at any time if breathing becomes worse, will consider VBG if she returns good AE with rare scattered wheeze at d/c pt reports she has inc'd sob with exertion and exercise Departure - Departure Time of Disposition: 22:43 Disposition: Home, Self-Care 01 Condition: Good Clinical Impression: Exacerbation of asthma - Discharge Information *PRESCRIPTION DRUG MONITORING PROGRAM REVIEWED*: Not Applicable *COPY OF PRESCRIPTION DRUG MONITORING REPORT IN PATIENT DENISE: Not Applicable Prescriptions: hydrOXYzine HCL [Hydroxyzine HCl] 50 mg PO TID #15 tablet Instructions: Asthma Attack, Asthma Attack Prevention, Adult Referrals: Janet Philippe, [employer]AD[employer] 1 THRU 6 VISITING TEACHER [Primary Care Provider] - Forms: ED Return to Work/School Form Additional Instructions: Continue Advair daily. Take steroid and azithromycin for 5 days beginning today. Use albuterol in nebulizer every 4 hours as needed. Prior to exercise, take 2 puffs on your albuterol inhaler. For stress and work of breathing, take hydroxyzine 50 mg 1 tab 3 times a day for 2 days, longer as needed. Use good handwashing. Get adequate rest. No work for 3 days. See your doctor in 3 days for further recommendations. However, return to ED at any time if you are feeling worse. Sepsis Event Note (ED) - Focused Exam Vital Signs: Vital Signs Temp Pulse Resp BP Pulse Ox 08/17/21 17:27 38.1 C 114 H 32 H 151/106 H 93 L - My Orders Last 24 Hours: My Active Orders 08/17/21 18:12 Isolation [COMM] Routine 08/17/21 19:47 Chest 2V [CR] Stat 08/17/21 21:16 RT Aerosol Therapy [RC] ASDIRECTED 08/17/21 22:12 RT Aerosol Therapy [RC] ASDIRECTED - Assessment/Plan Last 24 Hours: My Active Orders 08/17/21 18:12 Isolation [COMM] Routine 08/17/21 19:47 Chest 2V [CR] Stat 08/17/21 21:16 RT Aerosol Therapy [RC] ASDIRECTED 08/17/21 22:12 RT Aerosol Therapy [RC] ASDIRECTED
[2021-08-17] MEDS ORDERED: Benzonatate 100 MG Cap PO ONE (19:48)
[2021-08-17] MEDS ORDERED: hydrOXYzine HCl 50 MG/ML SDV IM ONE (19:57)
[2021-08-17] MEDS ORDERED: Albuterol 0.083% 2.5 MG/3 ML Neb Soln NEB ONE ×2 (21:15→22:11)
[2021-08-17] MEDS ORDERED: Ondansetron 4 MG/2 ML SDV IV PRN (23:39)
[2021-08-17] MEDS ORDERED: Zolpidem 5 MG Tab PO PRN (23:39)
[2021-08-17] MEDS ORDERED: Albuterol 0.083% 2.5 MG/3 ML Neb Soln NEB PRN (23:39)
[2021-08-18] MEDS: Enoxaparin 40 MG/0.4 ML Syringe SUBCUT SCH ×2 (01:11→23:49)
[2021-08-18] MEDS: methylPREDNISolone Sodium Succinate 125 MG/2 ML SDV ONE ×2 (01:26→01:59)
[2021-08-18] MEDS: methylPREDNISolone Sodium Succinate 125 MG/2 ML SDV IVPUSH SCH ×5 (02:05→23:50)
[2021-08-18] MEDS: methylPREDNISolone Sod Succ 125 MG in Sodium Chloride 0.9% 100 ML IV SCH ×2 (02:05→06:50)
[2021-08-18] MEDS ORDERED: methylPREDNISolone Sodium Succinate 125 MG/2 ML SDV ONE (06:39)
[2021-08-18] MEDS: Albuterol/Ipratropium 3.0-0.5 MG/3 ML Neb Soln NEB SCH ×4 (06:52→20:12)
[2021-08-18] MEDS ORDERED: Azithromycin 500 MG in Sodium Chloride 0.9% 250 ML IV ONE (08:28)
--- NOTE | 2021-08-18 10:24 | PCM.HP.2 ---
H&P History of Present Illness - General Date of Service: 08/18/21 Admit Problem/Dx: Admission Diagnosis/Problem Admission Diagnosis/Problem Asthma Source of Information: Patient, Old Records History Limitations: Reports: No Limitations - History of Present Illness Initial Comments - Free Text/Narative: 26-year-old lady with a history of asthma and Covid diagnosed in October 2020 came to the emergency room after being seen in the walk-in clinic for what appeared to be an asthma exacerbation. She states that ever since she had Covid in October 2020 she has had several of these exacerbations that required her to have steroid treatment. She was given steroids and azithromycin in the walk-in clinic but did not take them because of nausea. In the emergency department she was dyspneic, hypoxic, and was admitted to observation for more intensive treatment. Bilateral Chest Pain Score (Numeric/FACES): 8 - Related Data Allergies/Adverse Reactions: Allergies Allergy/AdvReac Type Severity Reaction Status Date / Time acetaminophen [From Tylenol] Allergy Hives Verified 04/23/21 04:50 ibuprofen Allergy Hives Verified 04/23/21 04:50 Penicillins Allergy Hives Verified 04/23/21 04:50 Home Medications: Home Meds Amitriptyline [Elavil] 100 mg PO BEDTIME 09/11/19 [History] Baclofen 20 mg PO DAILY 09/11/19 [History] Ethinyl Estradiol/Drospirenone [Ni 28 Tablet] 1 each PO BEDTIME 09/11/19 [History] Gabapentin [Neurontin] 100 mg PO BID PRN 09/11/19 [History] Hydroxychloroquine [Plaquenil] 200 mg PO DAILY 11/09/20 [History] Albuterol Sulfate [Albuterol Sulfate Hfa] 2 puff IH Q4H PRN 04/23/21 [History] Pantoprazole Sodium [Protonix] 40 mg PO DAILY #14 tablet. 04/23/21 [Rx] hydrOXYzine HCL [Hydroxyzine HCl] 50 mg PO TID #15 tablet 08/17/21 [Rx] Past Medical History 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: Asthma Other OB/BYN History: G0 Musculoskeletal History: Reports: Fibromyalgia, RA, Other (See Below) Other Musculoskeletal History: hx lupus Neurological History: Reports: Migraines Psychiatric History: Reports: Anxiety, Depression, Suicide Attempt Endocrine/Metabolic History: Reports: Obesity/BMI 30+ Hematologic History: Reports: Anemia - Infectious Disease History Infectious Disease History: Reports: Novel Coronavirus - Past Surgical History HEENT Surgical History: Reports: Adenoidectomy, Myringotomy w Tube(s), Oral Surgery, Tonsillectomy Other HEENT Surgeries/Procedures: bilat tubes Endocrine Surgical History: Reports: None Neurological Surgical History: Reports: None Musculoskeletal Surgical History: Reports: None Social & Family History - Family History Family Medical History: No Pertinent Family History - Tobacco Use Tobacco Use Status *Q: Never Tobacco User Second Hand Smoke Exposure: No - Caffeine Use Caffeine Use: Reports: Coffee - Recreational Drug Use Recreational Drug Use: No - Living Situation & Occupation Living situation: Reports: Single 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.) H&P Review of Systems - Review of Systems: Review Of Systems: See Below General: Reports: No Symptoms HEENT: Reports: No Symptoms Pulmonary: Reports: Shortness of Breath, Wheezing, Cough Cardiovascular: Reports: No Symptoms Gastrointestinal: Reports: No Symptoms Genitourinary: Reports: No Symptoms Musculoskeletal: Reports: No Symptoms Skin: Reports: No Symptoms Psychiatric: Reports: No Symptoms Neurological: Reports: No Symptoms Hematologic/Lymphatic: Reports: No Symptoms Immunologic: Reports: No Symptoms Exam - Exam Exam: See Below - Vital Signs Vital Signs: Last Vital Signs Temp 37.2 C 08/18/21 08:00 Pulse 114 H 08/18/21 08:00 Resp 16 08/18/21 08:00 BP 122/67 08/18/21 08:00 Pulse Ox 91 L 08/18/21 08:00 Weight: 107.864 kg - Exam Quality Assessment: Supplemental Oxygen General: Alert, Oriented, Cooperative HEENT: EOMI Neck: Supple Lungs: Decreased Breath Sounds. No: Crackles, Rales, Wheezing Cardiovascular: Regular Rhythm, Tachycardia GI/Abdominal Exam: Normal Bowel Sounds, Soft, Non-Tender Back Exam: Normal Inspection. No: CVA Tenderness (R), CVA Tenderness (L) Extremities: Normal Inspection, No Pedal Edema Peripheral Pulses: 2+: Radial (L), Radial (R), Dorsalis Pedis (L), Dorsalis Pedis (R) Skin: Warm, Dry Neurological: Cranial Nerves Intact Neuro Extensive - Mental Status: Alert, Oriented x3, Normal Mood/Affect, Normal Cognition Neuro Extensive - Motor, Sensory, Reflexes: CN II-XII Intact, Normal Gait Psychiatric: Alert, Normal Affect, Normal Mood - Patient Data Lab Results Last 24 hrs: Laboratory Results - last 24 hr 08/17/21 08/17/21 Range/Units 18:20 18:36 WBC 11.8 H (3.0-10.3) x10-3/uL RBC 4.73 (3.60-5.20) x10(6)uL Hgb 13.3 (11.4-15.5) g/dL Hct 39.7 (34.2-48.2) % MCV 84.1 (76.7-100.5) fL MCH 28.2 (23.9-33.9) pg MCHC 33.6 (31.9-34.8) g/dL RDW 12.7 (12.3-16.5) % Plt Count 244 (151-488) x10(3)uL MPV 8.8 (7.1-12.4) fL Neut % (Auto) 81.0 H (30.8-76.2) % Lymph % (Auto) 9.3 L (18.4-52.1) % Pike % (Auto) 6.2 (4.4-15.7) % Eos % (Auto) 2.9 (0.6-8.1) % Baso % (Auto) 0.6 (0.2-1.5) % Neut # (Auto) 9.6 H (1.5-6.3) x10-3/uL Lymph # (Auto) 1.1 (1.0-4.4) x10-3/uL Pike # (Auto) 0.7 (0.3-1.0) x10-3/uL Eos # (Auto) 0.3 (0.0-0.8) x10-3/uL Baso # (Auto) 0.1 (0.0-0.1) x10-3/uL SARS-CoV-2 RNA (DENISE) Negative (NEGATIVE) Result Diagrams: 08/17/21 18:20 Onesimo Results Last 24 hrs: Microbiology 08/17/21 18:36 Influenza Type A Antigen Screen - Final Nasal, Unspecified NEGATIVE INFLUENZA A VIRUS AG REFERENCE RANGE: NEGATIVE Influenza Type B Antigen Screen - Final NEGATIVE INFLUENZA B VIRUS AG REFERENCE RANGE: NEGATIVE Sepsis Event Note - Evaluation Sepsis Screening Result: Sepsis Risk - Focused Exam Vital Signs: Vital Signs Temp Pulse Resp BP Pulse Ox Pulse Ox 08/18/21 08:00 37.2 C 114 H 16 122/67 91 L 08/18/21 07:00 36.6 C 116 H 32 H 128/70 92 L 08/18/21 03:39 37.1 C 113 H 32 H 133/86 91 L 08/18/21 03:30 88 L 08/17/21 23:39 37.4 C 114 H 36 H 126/88 91 L - Problem List (1) Disease due to severe acute respiratory syndrome coronavirus 2 (SARS-CoV-2) with comorbid pulmonary disease SNOMED Code(s): 746294215, 443147159 ICD Code: U07.1 - COVID-19; J98.4 - OTHER DISORDERS OF LUNG Status: Chronic Current Visit: Yes (2) Obesity (BMI 30-39.9) SNOMED Code(s): 726516430, 625159008 ICD Code: E66.9 - OBESITY, UNSPECIFIED Status: Chronic Current Visit: Yes (3) Exacerbation of asthma SNOMED Code(s): 870502819 ICD Code: J45.901 - UNSPECIFIED ASTHMA WITH (ACUTE) EXACERBATION Status: Acute Current Visit: Yes (4) Dyspepsia SNOMED Code(s): 802285277 ICD Code: R10.13 - EPIGASTRIC PAIN Status: Acute Current Visit: No Problem List Initiated/Reviewed/Updated: Yes Orders Last 24hrs: Active Orders 24 hr Category Date Time Status Admission Status [Patient Status] [ADT] Routine ADT 08/17/21 23:15 Active Discontinue Telemetry Monitoring [Cardiac Monitoring Care 08/18/21 08:32 Active Discontinue] [RC] Click to Edit Oxygen Therapy Adult [Oxygen Therapy] [RC] ASDIRECTED Care 08/18/21 00:10 Active Oxygen Therapy [RC] PRN Care 08/17/21 23:39 Active RT Aerosol Therapy [RC] ASDIRECTED Care 08/17/21 21:16 Active RT Aerosol Therapy [RC] ASDIRECTED Care 08/17/21 22:12 Active RT Aerosol Therapy [RC] ASDIRECTED Care 08/17/21 23:42 Active Up ad Analy [RC] ASDIRECTED Care 08/17/21 23:39 Active Vital Signs [RC] 00,04,08,12,16,20 Care 08/17/21 23:39 Active Regular Diet [DIET] Diet 08/18/21 Breakfast Active Chest 2V [CR] Stat Exams 08/17/21 19:47 Taken Albuterol [Proventil Neb Soln] Med 08/17/21 23:39 Active 2.5 mg NEB Q2H PRN Albuterol/Ipratropium [DuoNeb 3.0-0.5 MG/3 ML] Med 08/18/21 07:00 Active 3 ml NEB QIDRT Azithromycin [Zithromax] 500 mg Med 08/18/21 08:28 Active Sodium Chloride 0.9% [Normal Saline (AdvBag)] 250 ml IV ONETIME Enoxaparin [Lovenox] Med 08/17/21 23:45 Active 40 mg SUBCUT Q24H Ondansetron [Zofran] Med 08/17/21 23:39 Active 4 mg IV Q4H PRN Zolpidem [Ambien] Med 08/17/21 23:39 Active 5 mg PO BEDTIME PRN methylPREDNISolone Sod Succ [SOLU-MedroL] 125 mg Med 08/18/21 00:00 Active Sodium Chloride 0.9% [Normal Saline] 100 ml IV Q6H Isolation [COMM] Routine Oth 08/17/21 18:12 Ordered Resuscitation Status Routine Resus Stat 08/17/21 23:39 Ordered Medication Orders Albuterol (Albuterol 0.083% 2.5 Mg/3 Ml Neb Soln) 2.5 mg NEB Q2H PRN PRN Reason: Shortness Of Breath/wheezing Last Admin: 08/18/21 03:23 Dose: 2.5 mg Documented by: SARAH Albuterol/Ipratropium (Albuterol/Ipratropium 3.0-0.5 Mg/3 Ml Neb Soln) 3 ml NEB QIDRT DARIAN Last Admin: 08/18/21 06:52 Dose: 3 ml Documented by: SARAH Enoxaparin Sodium (Enoxaparin 40 Mg/0.4 Ml Syringe) 40 mg SUBCUT Q24H [facility] Last Admin: 08/18/21 01:11 Dose: 40 mg Documented by: SARAH Methylprednisolone Sodium Succinate 125 mg/ Sodium Chloride 100 mls @ 100 mls/hr IV Q6H [facility] Last Admin: 08/18/21 06:50 Dose: 100 mls/hr Documented by: Admin: 08/18/21 02:05 Dose: 100 mls/hr Documented by: PIERCE Azithromycin 500 mg/ Sodium (Chloride) 250 mls @ 250 mls/hr IV ONETIME ONE Stop: 08/18/21 09:27 Last Admin: 08/18/21 08:43 Dose: 250 mls/hr Documented by: ROSLYN Ondansetron HCl (Ondansetron 4 Mg/2 Ml Sdv) 4 mg IV Q4H PRN PRN Reason: Nausea/Vomiting Zolpidem Tartrate (Zolpidem 5 Mg Tab) 5 mg PO BEDTIME PRN PRN Reason: Sleep Last Admin: 08/18/21 03:23 Dose: 5 mg Documented by: SARAH Assessment/Plan Comment:: 1. Admit patient to observation status continue DuoNebs, steroids, IV azithromycin, restart home medications when available, patient's home medications. Continue to wean patient off of supplementary oxygen 2. DVT prophylaxis: Enoxaparin 40 mg subcu daily 3. GI prophylaxis: Regular diet as tolerated 4. Disposition: Patient will likely be discharged tomorrow. She has already shown some improvement but is still having difficulties breathing and requiring supplemental oxygen.
[2021-08-18] MEDS ORDERED: Iopamidol 755 Mg/ML 100 ML Bottle IV ONE (15:08)
[2021-08-18] MEDS: Sodium Chloride 0.9% 10 ML Syringe FLUSH PRN (23:55)
[2021-08-19] MEDS: methylPREDNISolone Sodium Succinate 125 MG/2 ML SDV IVPUSH SCH (05:58)
[2021-08-19] MEDS: Sodium Chloride 0.9% 10 ML Syringe FLUSH PRN (06:01)
[2021-08-19] MEDS: Albuterol/Ipratropium 3.0-0.5 MG/3 ML Neb Soln NEB SCH ×4 (06:02→20:37)
--- NOTE | 2021-08-19 09:30 | PCM.PN ---
- General Info Date of Service: 08/19/21 Admission Dx/Problem (Free Text): Admission Diagnosis/Problem Admission Diagnosis/Problem Asthma Subjective Update: Patient states that she has no specific complaints such as pain and specifically denies chest pain, shortness of breath, abdominal pain, arthralgias, myalgias. However, she does state that she feels extremely fatigued. She also denies any difficulties with bowel or bladder Functional Status: Reports: Pain Controlled, Tolerating Diet, Ambulating, Urinating - Review of Systems General: Reports: Fatigue, Malaise HEENT: Reports: No Symptoms Pulmonary: Reports: No Symptoms Cardiovascular: Reports: No Symptoms Gastrointestinal: Reports: No Symptoms Genitourinary: Reports: No Symptoms Musculoskeletal: Reports: No Symptoms Skin: Reports: No Symptoms Neurological: Reports: No Symptoms Psychiatric: Reports: No Symptoms - Patient Data Vitals - Most Recent: Last Vital Signs Temp 37.7 C 08/19/21 08:00 Pulse 95 08/19/21 08:00 Resp 20 08/19/21 08:00 BP 124/72 08/19/21 08:00 Pulse Ox 92 L 08/19/21 08:00 Weight - Most Recent: 107.864 kg Lab Results Last 24 Hours: Laboratory Results - last 24 hr 08/18/21 08/18/21 08/19/21 Range/Units 09:49 15:00 06:23 WBC 23.4 H (3.0-10.3) x10-3/uL RBC 4.41 (3.60-5.20) x10(6)uL Hgb 12.2 (11.4-15.5) g/dL Hct 37.5 (34.2-48.2) % MCV 84.9 (76.7-100.5) fL MCH 27.6 (23.9-33.9) pg MCHC 32.5 (31.9-34.8) g/dL RDW 13.3 (12.3-16.5) % Plt Count 250 (151-488) x10(3)uL MPV 9.0 (7.1-12.4) fL Add Manual Diff Yes Neutrophils % (Manual) 93 H (46-82) % Band Neutrophils % 1 (0-6) % Lymphocytes % (Manual) 5 L (13-37) % Monocytes % (Manual) 1 L (4-12) % Sodium 143 (135-145) mmol/L Potassium 4.0 (3.5-5.3) mmol/L Chloride 105 (100-110) mmol/L Carbon Dioxide 25 (21-32) mmol/L BUN 9 (7-18) mg/dL Creatinine 0.8 (0.55-1.02) mg/dL Est Cr Clr Drug Dosing 82.80 mL/min Estimated GFR (MDRD) > 60 (>60) BUN/Creatinine Ratio 11.3 (9-20) Glucose 115 (80-116) mg/dL Calcium 8.9 (8.6-10.2) mg/dL Urine HCG, Qual Negative (NEGATIVE) 08/19/21 Range/Units 06:23 WBC (3.0-10.3) x10-3/uL RBC (3.60-5.20) x10(6)uL Hgb (11.4-15.5) g/dL Hct (34.2-48.2) % MCV (76.7-100.5) fL MCH (23.9-33.9) pg MCHC (31.9-34.8) g/dL RDW (12.3-16.5) % Plt Count (151-488) x10(3)uL MPV (7.1-12.4) fL Add Manual Diff Neutrophils % (Manual) (46-82) % Band Neutrophils % (0-6) % Lymphocytes % (Manual) (13-37) % Monocytes % (Manual) (4-12) % Sodium 143 (135-145) mmol/L Potassium 4.1 (3.5-5.3) mmol/L Chloride 108 (100-110) mmol/L Carbon Dioxide 23 (21-32) mmol/L BUN 18 (7-18) mg/dL Creatinine 0.9 (0.55-1.02) mg/dL Est Cr Clr Drug Dosing 73.60 mL/min Estimated GFR (MDRD) > 60 (>60) BUN/Creatinine Ratio 20.0 (9-20) Glucose 149 H (80-116) mg/dL Calcium 9.0 (8.6-10.2) mg/dL Urine HCG, Qual (NEGATIVE) Med Orders - Current: Current Medications Albuterol (Albuterol 0.083% 2.5 Mg/3 Ml Neb Soln) 2.5 mg NEB Q2H PRN PRN Reason: Shortness Of Breath/wheezing Last Admin: 08/18/21 03:23 Dose: 2.5 mg Documented by: Albuterol/Ipratropium (Albuterol/Ipratropium 3.0-0.5 Mg/3 Ml Neb Soln) 3 ml NEB QIDRT DARIAN Last Admin: 08/19/21 06:02 Dose: 3 ml Documented by: Enoxaparin Sodium (Enoxaparin 40 Mg/0.4 Ml Syringe) 40 mg SUBCUT Q24H [facility] TO [facility] Last Admin: 08/18/21 23:49 Dose: 40 mg Documented by: Levofloxacin/Dextrose 750 mg/ (Premix) 150 mls @ 100 mls/hr IV Q24H [facility] Methylprednisolone Sodium Succinate (Methylprednisolone Sodium Succinate 125 Mg/2 Ml Sdv) 125 mg IVPUSH Q6H [facility] Last Admin: 08/19/21 05:58 Dose: 125 mg Documented by: Ondansetron HCl (Ondansetron 4 Mg/2 Ml Sdv) 4 mg IV Q4H PRN PRN Reason: Nausea/Vomiting Sodium Chloride (Sodium Chloride 0.9% 10 Ml Syringe) 10 ml FLUSH ASDIRECTED PRN PRN Reason: Keep Vein Open Last Admin: 08/19/21 06:01 Dose: 10 ml Documented by: Zolpidem Tartrate (Zolpidem 5 Mg Tab) 5 mg PO BEDTIME PRN PRN Reason: Sleep Last Admin: 08/18/21 03:23 Dose: 5 mg Documented by: Discontinued Medications Albuterol (Albuterol 0.083% 2.5 Mg/3 Ml Neb Soln) 2.5 mg NEB ONETIME ONE Stop: 08/17/21 21:16 Last Admin: 08/17/21 21:20 Dose: 2.5 mg Documented by: Albuterol (Albuterol 0.083% 2.5 Mg/3 Ml Neb Soln) 2.5 mg NEB ONETIME ONE Stop: 08/17/21 22:12 Last Admin: 08/17/21 22:17 Dose: 2.5 mg Documented by: Benzonatate (Benzonatate 100 Mg Cap) 200 mg PO ONETIME ONE Stop: 08/17/21 19:49 Last Admin: 08/17/21 20:32 Dose: 200 mg Documented by: Hydroxyzine HCl (Hydroxyzine Hcl 50 Mg/Ml Sdv) 50 mg IM ONETIME ONE Stop: 08/17/21 19:58 Last Admin: 08/17/21 20:32 Dose: 50 mg Documented by: Methylprednisolone Sodium Succinate 125 mg/ Sodium Chloride 100 mls @ 100 mls/hr IV Q6H DARIAN Last Admin: 08/18/21 06:50 Dose: 100 mls/hr Documented by: Azithromycin 500 mg/ Sodium (Chloride) 250 mls @ 250 mls/hr IV ONETIME ONE Stop: 08/18/21 09:27 Last Admin: 08/18/21 08:43 Dose: 250 mls/hr Documented by: Iopamidol (Iopamidol 755 Mg/Ml 100 Ml Bottle) 100 ml IV . DIRECTED ONE Stop: 08/18/21 15:09 Last Admin: 08/18/21 15:35 Dose: 100 ml Documented by: Methylprednisolone Sodium Succinate (Methylprednisolone Sodium Succinate 125 Mg/2 Ml Sdv) 125 mg IM ONETIME ONE Stop: 08/17/21 18:18 Last Admin: 08/17/21 18:55 Dose: 125 mg Documented by: Methylprednisolone Sodium Succinate (Methylprednisolone Sodium Succinate 125 Mg/2 Ml Sdv) Confirm Administered Dose 125 mg .ROUTE .STK-MED ONE Stop: 08/18/21 00:28 Last Admin: 08/18/21 01:59 Dose: Not Given Documented by: Methylprednisolone Sodium Succinate (Methylprednisolone Sodium Succinate 125 Mg/2 Ml Sdv) Confirm Administered Dose 125 mg .ROUTE .STK-MED ONE Stop: 08/18/21 06:40 Last Admin: 08/18/21 06:55 Dose: Not Given Documented by: Comments:: Patient was sleeping in her bed on her left side, no snoring. She was able to wake up easily, pleasant, interactive. She was able to stand up next to the side of the bed without any assistance or difficulty and stand throughout the physical exam and interview, no shortness of breath, no cough. Patient did appear tired/fatigue - Exam Quality Assessment: Supplemental Oxygen, DVT Prophylaxis General: Alert, Oriented, Cooperative, No Acute Distress HEENT: EOMI Neck: Supple. No: Lymphadenopathy Lungs: Other (Mildly decreased lung sounds in the right lower middle lobes with very mild scattered coarse breath sounds in the right middle and lower lobe) Cardiovascular: Regular Rate, Regular Rhythm, No Murmurs GI/Abdominal Exam: Normal Bowel Sounds, Soft, Non-Tender Back Exam: Normal Inspection. No: CVA Tenderness (R), CVA Tenderness (L) Extremities: Normal Inspection, No Pedal Edema Peripheral Pulses: 2+: Radial (L), Radial (R), Dorsalis Pedis (L), Dorsalis Pedis (R) Skin: Warm, Dry, Intact Neurological: No New Focal Deficit, Normal Gait Psy/Mental Status: Alert, Normal Affect, Normal Mood - Patient Data Lab Results Last 24 hrs: Laboratory Results - last 24 hr 08/18/21 08/18/21 08/19/21 Range/Units 09:49 15:00 06:23 WBC 23.4 H (3.0-10.3) x10-3/uL RBC 4.41 (3.60-5.20) x10(6)uL Hgb 12.2 (11.4-15.5) g/dL Hct 37.5 (34.2-48.2) % MCV 84.9 (76.7-100.5) fL MCH 27.6 (23.9-33.9) pg MCHC 32.5 (31.9-34.8) g/dL RDW 13.3 (12.3-16.5) % Plt Count 250 (151-488) x10(3)uL MPV 9.0 (7.1-12.4) fL Add Manual Diff Yes Neutrophils % (Manual) 93 H (46-82) % Band Neutrophils % 1 (0-6) % Lymphocytes % (Manual) 5 L (13-37) % Monocytes % (Manual) 1 L (4-12) % Sodium 143 (135-145) mmol/L Potassium 4.0 (3.5-5.3) mmol/L Chloride 105 (100-110) mmol/L Carbon Dioxide 25 (21-32) mmol/L BUN 9 (7-18) mg/dL Creatinine 0.8 (0.55-1.02) mg/dL Est Cr Clr Drug Dosing 82.80 mL/min Estimated GFR (MDRD) > 60 (>60) BUN/Creatinine Ratio 11.3 (9-20) Glucose 115 (80-116) mg/dL Calcium 8.9 (8.6-10.2) mg/dL Urine HCG, Qual Negative (NEGATIVE) 08/19/21 Range/Units 06:23 WBC (3.0-10.3) x10-3/uL RBC (3.60-5.20) x10(6)uL Hgb (11.4-15.5) g/dL Hct (34.2-48.2) % MCV (76.7-100.5) fL MCH (23.9-33.9) pg MCHC (31.9-34.8) g/dL RDW (12.3-16.5) % Plt Count (151-488) x10(3)uL MPV (7.1-12.4) fL Add Manual Diff Neutrophils % (Manual) (46-82) % Band Neutrophils % (0-6) % Lymphocytes % (Manual) (13-37) % Monocytes % (Manual) (4-12) % Sodium 143 (135-145) mmol/L Potassium 4.1 (3.5-5.3) mmol/L Chloride 108 (100-110) mmol/L Carbon Dioxide 23 (21-32) mmol/L BUN 18 (7-18) mg/dL Creatinine 0.9 (0.55-1.02) mg/dL Est Cr Clr Drug Dosing 73.60 mL/min Estimated GFR (MDRD) > 60 (>60) BUN/Creatinine Ratio 20.0 (9-20) Glucose 149 H (80-116) mg/dL Calcium 9.0 (8.6-10.2) mg/dL Urine HCG, Qual (NEGATIVE) Result Diagrams: 08/19/21 06:23 08/19/21 06:23 Sepsis Event Note - Evaluation Sepsis Screening Result: No Definite Risk - Focused Exam Vital Signs: Vital Signs Temp Temp Pulse Resp BP Pulse Ox 08/19/21 08:00 37.7 C 95 20 124/72 92 L 08/19/21 06:10 36.8 C 100 20 116/75 93 L 08/19/21 00:00 37.0 C 105 H 24 H 121/79 93 L - Problem List & Annotations (1) Disease due to severe acute respiratory syndrome coronavirus 2 (SARS-CoV-2) with comorbid pulmonary disease SNOMED Code(s): 657961186, 896908673 Code(s): U07.1 - COVID-19; J98.4 - OTHER DISORDERS OF LUNG Status: Chronic Current Visit: Yes (2) Obesity (BMI 30-39.9) SNOMED Code(s): 714976636, 363000095 Code(s): E66.9 - OBESITY, UNSPECIFIED Status: Chronic Current Visit: Yes (3) Exacerbation of asthma SNOMED Code(s): 657865558 Code(s): J45.901 - UNSPECIFIED ASTHMA WITH (ACUTE) EXACERBATION Status: Acute Current Visit: Yes (4) Dyspepsia SNOMED Code(s): 820493752 Code(s): R10.13 - EPIGASTRIC PAIN Status: Acute Current Visit: No - Problem List Review Problem List Initiated/Reviewed/Updated: Yes - My Orders Last 24 Hours: My Active Orders 08/18/21 12:00 methylPREDNISolone Sod Succ [Solu-MEDROL] 125 mg IVPUSH Q6H 08/18/21 14:51 Ang Chest [CT] Routine 08/18/21 23:53 Sodium Chloride 0.9% [Saline Flush] 10 ml FLUSH ASDIRECTED PRN 08/19/21 09:00 Admission Status [Patient Status] [ADT] Routine 08/19/21 09:15 LACTIC ACID SEPSIS W/ REFLEX [LACTATE SEPSIS W/ REFLEX] [CHEM] Urgent 08/19/21 09:30 Levofloxacin/Dextrose 5%-Water [Levaquin in D5W 750 MG/150 ML] 750 mg Premix Bag 1 bag IV Q24H - Plan Plan:: 1. Patient changed to inpatient status due to significant increase in white blood cells with left shift. Continue DuoNebs, steroids, and start levofloxacin secondary to allergy to penicillin with the reaction of hives. Search of medical record shows no history of cephalosporins. 2. DVT prophylaxis: Enoxaparin 40 mg subcu daily 3. GI prophylaxis: Regular diet as tolerated 4. Disposition: Pending improvement. Likely 2 to 3 days
[2021-08-19] MEDS ORDERED: Sodium Chloride 0.9% 1,000 ML IV ONE (09:45)
[2021-08-19] MEDS: Levofloxacin/Dextrose 5%-Water 750 MG in Premix Bag 1 BAG IV SCH (09:47)
[2021-08-19] MEDS: Lactated Ringers 1,000 ML IV SCH ×2 (14:02→17:58)
--- NOTE | 2021-08-19 15:47 | PCM.SN.2 ---
- Free Text/Narrative Note: Patient had significantly elevated white blood cell count on this morning CBC. Lactic acid was elevated and the patient was given 1 L of normal saline but lactic acid was further elevated even after receiving the entire liter and 750 mg of IV Levaquin. Patient has allergy to penicillins and there is no history of her receiving cephalosporins. Further investigation showed that CPK was significantly elevated at 1570. Interview with the patient showed that she has a stated history of lupus. Review of her medical record shows that she does have a history of rheumatoid arthritis treated with Plaquenil but after having a positive KENDALL, SCHEME TECHNICIAN antibodies were found to be elevated. Patient is being seen by rheumatology. This may indicate a mixed connective tissue disease and is at this time not specified. Labs are pending with the [facility] are ESR, CRP, CBC, and CMP. Due to significantly elevated white blood cell count patient will continue to receive Levaquin, 750 mg IV daily. Due to elevated CPK and lactic acid patient will continue to receive IV fluids. She initially was given 1 L normal saline and now is receiving 2 L of lactated Ringer's at 250 mL/h. We will monitor CBC, BMP today and follow-up tomorrow morning with CBC, CMP, and CPK. Examination of the patient in her room this afternoon shows that she is in good spirits and feeling well. She is awake, alert, oriented, and even spent some time studying for her paramedics class. No acute distress at this time. She does state that she feels very tired/fatigued. Time Documentation
[2021-08-19] MEDS: Hydroxychloroquine 200 MG Tab PO SCH ×2 (16:08→20:35)
[2021-08-19] MEDS ORDERED: Sodium Chloride 0.9% 1,000 ML IV SCH (19:00)
[2021-08-19] MEDS: Baclofen 10 MG Tab PO SCH (20:36)
[2021-08-19] MEDS: Gabapentin 100 MG Cap PO SCH (20:37)
[2021-08-19] MEDS ORDERED: Amitriptyline 25 MG Tab PO SCH (21:00)
[2021-08-19] MEDS ORDERED: Formoterol/Mometasone 200-5 MCG 8.8 GM Inhaler IH SCH (21:00)
[2021-08-19] MEDS: Sodium Chloride 0.9% 1,000 ML IV SCH (21:52)
[2021-08-19] MEDS: Enoxaparin 40 MG/0.4 ML Syringe SUBCUT SCH (23:09)
[2021-08-20] MEDS: Albuterol/Ipratropium 3.0-0.5 MG/3 ML Neb Soln NEB SCH ×2 (06:07→10:25)
[2021-08-20] MEDS ORDERED: Formoterol/Mometasone 200-5 MCG 8.8 GM Inhaler IH SCH (07:52)
[2021-08-20] MEDS ORDERED: predniSONE 20 MG Tab PO SCH (08:00)
[2021-08-20] MEDS: Levofloxacin/Dextrose 5%-Water 750 MG in Premix Bag 1 BAG IV SCH (08:39)
[2021-08-20] MEDS: Sodium Chloride 0.9% 1,000 ML IV SCH (08:45)
[2021-08-20] MEDS: Baclofen 10 MG Tab PO SCH (08:59)
[2021-08-20] MEDS: Hydroxychloroquine 200 MG Tab PO SCH (08:59)
[2021-08-20] MEDS ORDERED: DROSPIRENONE PO SCH (09:00)
[2021-08-20] MEDS ORDERED: ETHINYL ESTRADIOL PO SCH (09:00)
[2021-08-20] MEDS ORDERED: [UNRECOGNIZED DRUG - OTHER] PO SCH (09:00)
[2021-08-20] MEDS: Gabapentin 100 MG Cap PO SCH (09:02)
--- NOTE | 2021-08-20 09:20 | PCM.DCSUM1 ---
Discharge Summary - Hospital Course Free Text/Narrative:: Patient was admitted for what was likely an asthma exacerbation. She was initially treated as such. She was given high-dose, 125 mg Solu-Medrol, IV, every 8 hours for 3 doses followed by 40 mg prednisone oral with breakfast. Review of her medical record shows that she has recently been diagnosed with mixed connective tissue disorder and is treated with hydroxychloroquine and prednisone for seronegative rheumatoid arthritis. White blood cell count incre ased significantly on her second day and she was started on Levaquin secondary to penicillin allergy. CTA of the lungs was negative for pulmonary embolism and did not show any significant indications for community-acquired pneumonia including no mediastinal lymphadenopathy. However, she did have some questionable finding in the mid upper right lobe and had coarse breath sounds in that area. Her lactic acid and CPK were significantly elevated. She was given 1 L of normal saline followed by 2 L of lactated Ringer's followed by 1 L normal saline. Combined with Levaquin her white blood cell count, CPK, and lactic acid have improved significantly. I consulted with rheumatology and she will have an appointment this week. She has labs that were previously ordered with [facility] and will go and have those labs drawn prior to her appointment with rheumatology this week. She will be discharged with 5 more days of Levaquin and a note to return to work on Friday, 26 August 2021. 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 - Discharge Diagnosis/Problem(s) (1) Disease due to severe acute respiratory syndrome coronavirus 2 (SARS-CoV-2) with comorbid pulmonary disease SNOMED Code(s): 830123653, 528176538 ICD Code: U07.1 - COVID-19; J98.4 - OTHER DISORDERS OF LUNG Status: Chronic Current Visit: Yes (2) Obesity (BMI 30-39.9) SNOMED Code(s): 546445967, 867819225 ICD Code: E66.9 - OBESITY, UNSPECIFIED Status: Chronic Current Visit: Yes (3) Exacerbation of asthma SNOMED Code(s): 790485973 ICD Code: J45.901 - UNSPECIFIED ASTHMA WITH (ACUTE) EXACERBATION Status: Acute Current Visit: Yes (4) Dyspepsia SNOMED Code(s): 501007194 ICD Code: R10.13 - EPIGASTRIC PAIN Status: Acute Current Visit: No (5) Seronegative rheumatoid arthritis SNOMED Code(s): 751770108 ICD Code: M06.00 - RHEUMATOID ARTHRITIS WITHOUT RHEUMATOID FACTOR, UNSP SITE Status: Acute Current Visit: Yes (6) MCTD (mixed connective tissue disease) SNOMED Code(s): 380052225 ICD Code: M35.1 - OTHER OVERLAP SYNDROMES Status: Acute Current Visit: Yes - Patient Instructions Diet: Heart Healthy Diet Activity: As Tolerated Driving: May Drive Today Showering/Bathing: May Shower - Discharge Plan *PRESCRIPTION DRUG MONITORING PROGRAM REVIEWED*: Not Applicable *COPY OF PRESCRIPTION DRUG MONITORING REPORT IN PATIENT DENISE: Not Applicable Prescriptions/Med Rec: Levofloxacin 750 mg PO DAILY #5 tablet Home Medications: Home Meds Baclofen 10 mg PO TID 09/11/19 [History] Gabapentin [Neurontin] 100 mg PO TID 09/11/19 [History] Hydroxychloroquine [Plaquenil] 200 mg PO BID 11/09/20 [History] Albuterol Sulfate [Albuterol Sulfate Hfa] 2 puff IH Q4H PRN 04/23/21 [History] Amitriptyline HCl 100 mg PO BEDTIME 08/19/21 [History] Ethinyl Estradiol/Drospirenone [Loryna 3 mg-0.02 mg Tablet] 1 tab PO DAILY 08/19/21 [History] Fexofenadine [Nya] 180 mg PO BID 08/19/21 [History] Fluticasone Propion/Salmeterol [Fluticasone-Salmeterol 250-50] 1 puff INH BID 08/19/21 [History] Albuterol/Ipratropium [DuoNeb 3.0-0.5 MG/3 ML] 3 ml INH Q6H PRN 08/20/21 [History] Hydroxychloroquine [Plaquenil] 200 mg PO BID tablet 08/20/21 [Rx] Levofloxacin 750 mg PO DAILY #5 tablet 08/20/21 [Rx] Patient Handouts: Asthma Attack, Asthma Attack Prevention, Adult Forms: ED Return to Work/School Form Referrals: Janet Philippe NP [Primary Care Provider] - - Discharge Summary/Plan Comment DC Time >30 min.: Yes Total # of Minutes for Discharge Time: 60 Discharge Summary/Plan Comment: Patient discharged with instructions to follow-up with [facility] and with rheumatology and with her primary care physician. Patient instructed to continue on Levaquin daily for 5 more days. Return to work on 26 August 2021. I advised the patient to increase her fluid intake secondary to what is likely mixed connective tissue disease with elevated CPK and lactic acid. - General Info Date of Service: 08/20/21 Admission Dx/Problem (Free Text: Admission Diagnosis/Problem Admission Diagnosis/Problem Asthma Subjective Update: Patient states that she feels much better today and is ready to go home, she has no acute complaints Functional Status: Reports: Pain Controlled, Tolerating Diet, Ambulating, Urinating - Review of Systems General: Reports: Fatigue HEENT: Reports: No Symptoms Pulmonary: Reports: No Symptoms Cardiovascular: Reports: No Symptoms Gastrointestinal: Reports: No Symptoms Genitourinary: Reports: No Symptoms Musculoskeletal: Reports: No Symptoms Skin: Reports: No Symptoms Neurological: Reports: No Symptoms Psychiatric: Reports: No Symptoms - Patient Data Vitals - Most Recent: Last Vital Signs Temp 36.7 C 08/20/21 06:00 Pulse 71 08/20/21 06:00 Resp 20 08/20/21 06:00 BP 120/83 08/20/21 06:00 Pulse Ox 98 08/20/21 06:00 Weight - Most Recent: 107.864 kg I&O - Last 24 hours: Intake & Output 08/19/21 08/20/21 08/20/21 22:59 06:59 14:59 Intake Total 2854 1057 Balance 2854 1057 Lab Results - Last 24 hrs: Laboratory Results - last 24 hr 08/19/21 08/19/21 08/19/21 Range/Units 09:15 09:15 12:40 WBC (3.0-10.3) x10-3/uL RBC (3.60-5.20) x10(6)uL Hgb (11.4-15.5) g/dL Hct (34.2-48.2) % MCV (76.7-100.5) fL MCH (23.9-33.9) pg MCHC (31.9-34.8) g/dL RDW (12.3-16.5) % Plt Count (151-488) x10(3)uL MPV (7.1-12.4) fL Neut % (Auto) (30.8-76.2) % Lymph % (Auto) (18.4-52.1) % Bath % (Auto) (4.4-15.7) % Eos % (Auto) (0.6-8.1) % Baso % (Auto) (0.2-1.5) % Neut # (Auto) (1.5-6.3) x10-3/uL Lymph # (Auto) (1.0-4.4) x10-3/uL Bath # (Auto) (0.3-1.0) x10-3/uL Eos # (Auto) (0.0-0.8) x10-3/uL Baso # (Auto) (0.0-0.1) x10-3/uL Add Manual Diff Neutrophils % (Manual) (46-82) % Lymphocytes % (Manual) (13-37) % Monocytes % (Manual) (4-12) % Sodium (135-145) mmol/L Potassium (3.5-5.3) mmol/L Chloride (100-110) mmol/L Carbon Dioxide (21-32) mmol/L BUN (7-18) mg/dL Creatinine (0.55-1.02) mg/dL Est Cr Clr Drug Dosing mL/min Estimated GFR (MDRD) (>60) BUN/Creatinine Ratio (9-20) Glucose (80-116) mg/dL Lactic Acid 3.1 H* 3.9 H* (0.4-2.0) mmol/L Calcium (8.6-10.2) mg/dL Total Bilirubin (0.1-1.3) mg/dL AST (5-25) IU/L ALT (12-36) U/L Alkaline Phosphatase (56-112) IU/L Creatine Kinase 1579 H* (60-160) IU/L Total Protein (6.0-8.0) g/dL Albumin (3.5-5.2) g/dL Globulin g/dL Albumin/Globulin Ratio 08/19/21 08/19/21 08/19/21 Range/Units 15:29 15:29 15:29 WBC 21.2 H (3.0-10.3) x10-3/uL RBC 4.21 (3.60-5.20) x10(6)uL Hgb 11.7 (11.4-15.5) g/dL Hct 35.8 (34.2-48.2) % MCV 85.0 (76.7-100.5) fL MCH 27.8 (23.9-33.9) pg MCHC 32.7 (31.9-34.8) g/dL RDW 13.2 (12.3-16.5) % Plt Count 232 (151-488) x10(3)uL MPV 9.0 (7.1-12.4) fL Neut % (Auto) (30.8-76.2) % Lymph % (Auto) (18.4-52.1) % Bath % (Auto) (4.4-15.7) % Eos % (Auto) (0.6-8.1) % Baso % (Auto) (0.2-1.5) % Neut # (Auto) (1.5-6.3) x10-3/uL Lymph # (Auto) (1.0-4.4) x10-3/uL Bath # (Auto) (0.3-1.0) x10-3/uL Eos # (Auto) (0.0-0.8) x10-3/uL Baso # (Auto) (0.0-0.1) x10-3/uL Add Manual Diff Yes Neutrophils % (Manual) 83 H (46-82) % Lymphocytes % (Manual) 8 L (13-37) % Monocytes % (Manual) 9 (4-12) % Sodium 143 (135-145) mmol/L Potassium 4.0 (3.5-5.3) mmol/L Chloride 109 (100-110) mmol/L Carbon Dioxide 23 (21-32) mmol/L BUN 20 H (7-18) mg/dL Creatinine 0.9 (0.55-1.02) mg/dL Est Cr Clr Drug Dosing 73.60 mL/min Estimated GFR (MDRD) > 60 (>60) BUN/Creatinine Ratio 22.2 H (9-20) Glucose 122 H (80-116) mg/dL Lactic Acid 2.5 H* (0.4-2.0) mmol/L Calcium 8.4 L (8.6-10.2) mg/dL Total Bilirubin 0.2 (0.1-1.3) mg/dL AST 36 H D (5-25) IU/L ALT 38 H D (12-36) U/L Alkaline Phosphatase 63 (56-112) IU/L Creatine Kinase (60-160) IU/L Total Protein 6.3 (6.0-8.0) g/dL Albumin 2.7 L (3.5-5.2) g/dL Globulin 3.6 g/dL Albumin/Globulin Ratio 0.8 08/19/21 08/20/21 08/20/21 Range/Units 19:07 06:25 06:25 WBC 13.4 H (3.0-10.3) x10-3/uL RBC 4.03 (3.60-5.20) x10(6)uL Hgb 11.3 L (11.4-15.5) g/dL Hct 34.4 (34.2-48.2) % MCV 85.4 (76.7-100.5) fL MCH 28.1 (23.9-33.9) pg MCHC 32.9 (31.9-34.8) g/dL RDW 13.3 (12.3-16.5) % Plt Count 188 (151-488) x10(3)uL MPV 8.9 (7.1-12.4) fL Neut % (Auto) 70.7 (30.8-76.2) % Lymph % (Auto) 22.1 (18.4-52.1) % Bath % (Auto) 7.0 (4.4-15.7) % Eos % (Auto) 0.1 L (0.6-8.1) % Baso % (Auto) 0.1 L (0.2-1.5) % Neut # (Auto) 9.5 H (1.5-6.3) x10-3/uL Lymph # (Auto) 3.0 (1.0-4.4) x10-3/uL Bath # (Auto) 0.9 (0.3-1.0) x10-3/uL Eos # (Auto) 0.0 (0.0-0.8) x10-3/uL Baso # (Auto) 0.0 (0.0-0.1) x10-3/uL Add Manual Diff Neutrophils % (Manual) (46-82) % Lymphocytes % (Manual) (13-37) % Monocytes % (Manual) (4-12) % Sodium 143 (135-145) mmol/L Potassium 4.2 (3.5-5.3) mmol/L Chloride 111 H (100-110) mmol/L Carbon Dioxide 25 (21-32) mmol/L BUN 21 H (7-18) mg/dL Creatinine 0.8 (0.55-1.02) mg/dL Est Cr Clr Drug Dosing 82.80 mL/min Estimated GFR (MDRD) > 60 (>60) BUN/Creatinine Ratio 26.3 H (9-20) Glucose 101 (80-116) mg/dL Lactic Acid 2.5 H* (0.4-2.0) mmol/L Calcium 8.0 L (8.6-10.2) mg/dL Total Bilirubin 0.2 (0.1-1.3) mg/dL AST 35 H (5-25) IU/L ALT 52 H D (12-36) U/L Alkaline Phosphatase 56 (56-112) IU/L Creatine Kinase 655 H* (60-160) IU/L Total Protein 5.7 L (6.0-8.0) g/dL Albumin 2.5 L (3.5-5.2) g/dL Globulin 3.2 g/dL Albumin/Globulin Ratio 0.8 // Range/Units 08:01 WBC (3.0-10.3) x10-3/uL RBC (3.60-5.20) x10(6)uL Hgb (11.4-15.5) g/dL Hct (34.2-48.2) % MCV (76.7-100.5) fL MCH (23.9-33.9) pg MCHC (31.9-34.8) g/dL RDW (12.3-16.5) % Plt Count (151-488) x10(3)uL MPV (7.1-12.4) fL Neut % (Auto) (30.8-76.2) % Lymph % (Auto) (18.4-52.1) % Bath % (Auto) (4.4-15.7) % Eos % (Auto) (0.6-8.1) % Baso % (Auto) (0.2-1.5) % Neut # (Auto) (1.5-6.3) x10-3/uL Lymph # (Auto) (1.0-4.4) x10-3/uL Bath # (Auto) (0.3-1.0) x10-3/uL Eos # (Auto) (0.0-0.8) x10-3/uL Baso # (Auto) (0.0-0.1) x10-3/uL Add Manual Diff Neutrophils % (Manual) (46-82) % Lymphocytes % (Manual) (13-37) % Monocytes % (Manual) (4-12) % Sodium (135-145) mmol/L Potassium (3.5-5.3) mmol/L Chloride (100-110) mmol/L Carbon Dioxide (21-32) mmol/L BUN (7-18) mg/dL Creatinine (0.55-1.02) mg/dL Est Cr Clr Drug Dosing mL/min Estimated GFR (MDRD) (>60) BUN/Creatinine Ratio (9-20) Glucose (80-116) mg/dL Lactic Acid 1.3 (0.4-2.0) mmol/L Calcium (8.6-10.2) mg/dL Total Bilirubin (0.1-1.3) mg/dL AST (5-25) IU/L ALT (12-36) U/L Alkaline Phosphatase (56-112) IU/L Creatine Kinase (60-160) IU/L Total Protein (6.0-8.0) g/dL Albumin (3.5-5.2) g/dL Globulin g/dL Albumin/Globulin Ratio RONY Results - Last 24 hrs: Microbiology 08/19/21 14:10 Influenza Type A Antigen Screen - Final Nasal, Unspecified NEGATIVE INFLUENZA A VIRUS AG REFERENCE RANGE: NEGATIVE Influenza Type B Antigen Screen - Final NEGATIVE INFLUENZA B VIRUS AG REFERENCE RANGE: NEGATIVE Med Orders - Current: Current Medications Albuterol (Albuterol 0.083% 2.5 Mg/3 Ml Neb Soln) 2.5 mg NEB Q2H PRN PRN Reason: Shortness Of Breath/wheezing Last Admin: 08/18/21 03:23 Dose: 2.5 mg Documented by: Albuterol/Ipratropium (Albuterol/Ipratropium 3.0-0.5 Mg/3 Ml Neb Soln) 3 ml NEB QIDRT [facility] Last Admin: 08/20/21 06:07 Dose: 3 ml Documented by: Amitriptyline HCl (Amitriptyline 25 Mg Tab) 100 mg PO BEDTIME [facility] Last Admin: 08/19/21 20:38 Dose: 100 mg Documented by: Baclofen (Baclofen 10 Mg Tab) 10 mg PO TID [facility] Last Admin: 08/20/21 08:59 Dose: 10 mg Documented by: Enoxaparin Sodium (Enoxaparin 40 Mg/0.4 Ml Syringe) 40 mg SUBCUT Q24H [facility] Fexofenadine HCl (Fexofenadine 180 Mg Tab) 180 mg PO DAILY [facility] Last Admin: 08/20/21 08:59 Dose: 180 mg Documented by: Gabapentin (Gabapentin 100 Mg Cap) 100 mg PO TID [facility] Last Admin: 08/20/21 09:02 Dose: 100 mg Documented by: Hydroxychloroquine Sulfate (Hydroxychloroquine 200 Mg Tab) 200 mg PO BID [facility] Last Admin: 08/20/21 08:59 Dose: 200 mg Documented by: Levofloxacin/Dextrose 750 mg/ (Premix) 150 mls @ 100 mls/hr IV Q24H [facility] Last Admin: 08/20/21 08:39 Dose: 100 mls/hr Documented by: Sodium Chloride (Normal Saline) 1,000 mls @ 100 mls/hr IV ASDIRECTED [facility] Last Admin: 08/20/21 08:45 Dose: 100 mls/hr Documented by: Mometasone Furoate/Formoterol Fumar (Formoterol/Mometasone 200-5 Mcg 8.8 Gm Inhaler) 0 puff IH BID [facility] Last Admin: 08/20/21 09:07 Dose: 2 puff Documented by: Non-Formulary Medication (Ethinyl Estradiol/Drospirenone [Loryna 3 Mg-0.02 Mg Tablet]) 1 tab PO DAILY [facility] Ondansetron HCl (Ondansetron 4 Mg/2 Ml Sdv) 4 mg IV Q4H PRN PRN Reason: Nausea/Vomiting Prednisone (Prednisone 20 Mg Tab) 40 mg PO WITHBREAKFAST [facility] Last Admin: 08/20/21 09:00 Dose: 40 mg Documented by: Sodium Chloride (Sodium Chloride 0.9% 10 Ml Syringe) 10 ml FLUSH ASDIRECTED PRN PRN Reason: Keep Vein Open Last Admin: 08/19/21 06:01 Dose: 10 ml Documented by: Zolpidem Tartrate (Zolpidem 5 Mg Tab) 5 mg PO BEDTIME PRN PRN Reason: Sleep Last Admin: 08/18/21 03:23 Dose: 5 mg Documented by: Discontinued Medications Albuterol (Albuterol 0.083% 2.5 Mg/3 Ml Neb Soln) 2.5 mg NEB ONETIME ONE Stop: 08/17/21 21:16 Last Admin: 08/17/21 21:20 Dose: 2.5 mg Documented by: Albuterol (Albuterol 0.083% 2.5 Mg/3 Ml Neb Soln) 2.5 mg NEB ONETIME ONE Stop: 08/17/21 22:12 Last Admin: 08/17/21 22:17 Dose: 2.5 mg Documented by: Benzonatate (Benzonatate 100 Mg Cap) 200 mg PO ONETIME ONE Stop: 08/17/21 19:49 Last Admin: 08/17/21 20:32 Dose: 200 mg Documented by: Enoxaparin Sodium (Enoxaparin 40 Mg/0.4 Ml Syringe) 40 mg SUBCUT Q24H [facility] Last Admin: 08/19/21 23:09 Dose: 40 mg Documented by: Hydroxyzine HCl (Hydroxyzine Hcl 50 Mg/Ml Sdv) 50 mg IM ONETIME ONE Stop: 08/17/21 19:58 Last Admin: 08/17/21 20:32 Dose: 50 mg Documented by: Methylprednisolone Sodium Succinate 125 mg/ Sodium Chloride 100 mls @ 100 mls/hr IV Q6H [facility] Last Admin: 08/18/21 06:50 Dose: 100 mls/hr Documented by: Azithromycin 500 mg/ Sodium (Chloride) 250 mls @ 250 mls/hr IV ONETIME ONE Stop: 08/18/21 09:27 Last Admin: 08/18/21 08:43 Dose: 250 mls/hr Documented by: Sodium Chloride (Normal Saline) 1,000 mls @ 999 mls/hr IV ONETIME ONE Stop: 08/19/21 10:45 Last Admin: 08/19/21 09:48 Dose: 999 mls/hr Documented by: Lactated Ringer's (Ringers, Lactated) 1,000 mls @ 250 mls/hr IV ASDIRECTED [facility] Stop: 08/20/21 17:29 Last Admin: 08/19/21 17:58 Dose: 250 mls/hr Documented by: Sodium Chloride (Normal Saline) 1,000 mls @ 100 mls/hr IV ASDIRECTED [facility] Iopamidol (Iopamidol 755 Mg/Ml 100 Ml Bottle) 100 ml IV . DIRECTED ONE Stop: 08/18/21 15:09 Last Admin: 08/18/21 15:35 Dose: 100 ml Documented by: Methylprednisolone Sodium Succinate (Methylprednisolone Sodium Succinate 125 Mg/2 Ml Sdv) 125 mg IM ONETIME ONE Stop: 08/17/21 18:18 Last Admin: 08/17/21 18:55 Dose: 125 mg Documented by: Methylprednisolone Sodium Succinate (Methylprednisolone Sodium Succinate 125 Mg/2 Ml Sdv) Confirm Administered Dose 125 mg .ROUTE .STK-MED ONE Stop: 08/18/21 00:28 Last Admin: 08/18/21 01:59 Dose: Not Given Documented by: Methylprednisolone Sodium Succinate (Methylprednisolone Sodium Succinate 125 Mg/2 Ml Sdv) Confirm Administered Dose 125 mg .ROUTE .STK-MED ONE Stop: 08/18/21 06:40 Last Admin: 08/18/21 06:55 Dose: Not Given Documented by: Methylprednisolone Sodium Succinate (Methylprednisolone Sodium Succinate 125 Mg/2 Ml Sdv) 125 mg IVPUSH Q6H [facility] Last Admin: 08/19/21 05:58 Dose: 125 mg Documented by: Mometasone Furoate/Formoterol Fumar (Formoterol/Mometasone 200-5 Mcg 8.8 Gm Inhaler) 0 puff IH BID [facility] Last Admin: 08/19/21 20:37 Dose: 2 puff Documented by: Comments:: Patient was awake lying in bed, able to sit up in the bed with ease - Exam Quality Assessment: Reports: Supplemental Oxygen, DVT Prophylaxis General: Reports: Alert, Oriented, Cooperative, No Acute Distress HEENT: Reports: EOMI Neck: Reports: Supple Lungs: Reports: Other (Subjectively mild coarse lung sounds in the right middle lobe, improved from yesterday, otherwise normal) Cardiovascular: Reports: Regular Rate, Regular Rhythm, No Murmurs GI/Abdominal Exam: Normal Bowel Sounds, Soft, Non-Tender Back Exam: Reports: Normal Inspection. Denies: CVA Tenderness (R), CVA Tenderness (L) Extremities: Normal Inspection Skin: Reports: Warm, Dry Neurological: Reports: No New Focal Deficit Psy/Mental Status: Reports: Alert, Normal Affect, Normal Mood
--- NOTE | 2021-08-20 10:53 | CR ---
CHEST TWO VIEWS INDICATION: Cough and fever. FINDINGS: PA and lateral views of the chest were obtained 08/17/21 - no comparisons. Somewhat heavy markings are noted at the lung bases, perhaps more so at the left lower lobe which may represent minimal patchy bronchopneumonia. No pleural effusion or gross consolidating pneumonia was identified. The heart and mediastinum are unremarkable. A mild dextroconcave scoliosis of the lower thoracic spine is noted. Evidence of exogenous obesity is noted. IMPRESSION: 1. Cannot exclude patchy bronchopneumonia at the lung bases but especially at the left lower lobe. 2. Mild scoliosis. 3. Exogenous obesity. MTDD
[2021-08-20] MEDS ORDERED: Enoxaparin 40 MG/0.4 ML Syringe SUBCUT SCH (21:00)
== END 2021-08-20 11:20 | disposition home or self-care (01) | DRG 141 ==
LOC: FB.ED 17:27 → FB.MS 23:17 → OBSVTOIN 08-19 09:00
PROVIDERS: ADMIT Emergency Medicine; ATTEND Student in an Organized Health Care Education/Training Program
PROC: 8E0ZXY6 Isolation (ICD-10-PCS; principal; 2021-08-19)
DX: J45.901 Unspecified asthma with (acute) exacerbation (principal); M06.00 Rheumatoid arthritis without rheumatoid factor, unspecified site; M35.1 Other overlap syndromes; F41.9 Anxiety disorder, unspecified; B94.8 Sequelae of other specified infectious and parasitic diseases; F32.9 Major depressive disorder, single episode, unspecified; J98.4 Other disorders of lung; Z20.822 Contact with and (suspected) exposure to COVID-19; E66.9 Obesity, unspecified; Z88.0 Allergy status to penicillin; Z88.6 Allergy status to analgesic agent; Z79.899 Other long term (current) drug therapy; Z98.890 Other specified postprocedural states; Z68.41 Body mass index [BMI] 40.0-44.9, adult
CPT/HCPCS: 36410; 36415; 71046; 71275; 80048; 80053; 81025; 82550; 83605; 85025; 87804; 87804-59; 94150; 94640; 94760; 96365; 96372; 96375; 96376; 99285-25; A9270-GY; G0378; J0456; J1650; J1956; J2930; J3410; J7030; J7050; J7120; J7512; J7620-GY; Q9967; U0002